=== PATIENT | female | born 1990 | race Caucasian/White ===

== ENCOUNTER 2018-08-25 18:22 | Emergency (ER) | payer OTHER ==
[~2018-08-25] VITALS: Ht 157.5 cm; Wt 59.9 kg
--- OUTSIDE RECORDS SUMMARY | 2018-08-25 18:28 | XMS REPORT ---
Author Author Migration, Doctor Organization [facility] Address Unknown Phone Unavailable Care Team Providers Care Mechanical Adjuster Name Role Phone Migration, Doctor Unavailable Unavailable PROBLEMS Type Condition ICD9-CM Code [id number] Code Onset Dates Condition Status SNOMED Code Problem Unspecified infective otitis externa 380.10 Active 24046937 Problem Amenorrhea N91.2 Active 77389840 Problem Pain in soft tissues of limb 729.5 Active 92419006 Problem Acute pharyngitis 462 Active 496805529 Problem Acute sinusitis, unspecified 461.9 Active 22028242 ALLERGIES No Information ENCOUNTERS Encounter Location Date Diagnosis [address] [address] Aug, [address] [address] July, Encounter for supervision of other normal , first trimester Z34.[address] [address] July, Nausea & vomiting R11.2 and Encounter for supervision of other normal , first trimester Z34.[address] [address] July, Amenorrhea N91.[address] [address] July, Amenorrhea N91.[address] [address] July, [facility] [address] [place] [address] Jun, Nausea & vomiting R11.2 [facility] WALK IN [facility] [address] [place] [address] May, Drug screening, pre-employment Z02.1 [facility] [address] [facility] [id number] [address] Aug, [facility] [address] [facility] [id number] [place] [address] Jun, [facility] [address] [facility] [id number] [place] [address] Jun, IMMUNIZATIONS No Known Immunizations SOCIAL HISTORY Never Assessed REASON FOR VISIT EMR-[facility] [place] PLAN OF CARE VITAL SIGNS Height 62 in 2013-07-09 Weight 141 lbs 2013-07-09 Temperature 98.1 degrees Fahrenheit 2013-07-09 Heart Rate 64 bpm 2013-07-09 Respiratory Rate 16 2013-07-09 Blood pressure systolic 114 mmHg 2013-07-09 Blood pressure diastolic 68 mmHg 2013-07-09 MEDICATIONS Unknown Medications RESULTS No Results PROCEDURES No Known procedures INSTRUCTIONS MEDICATIONS ADMINISTERED No Known Medications MEDICAL (GENERAL) HISTORY Type Description Date Surgical History fistula repair Surgical History hemorrhoidectomy Hospitalization History see surgeries
--- OUTSIDE RECORDS SUMMARY | 2018-08-25 18:28 | XMS REPORT ---
Author Author Migration, Doctor Organization [facility] Address Unknown Phone Unavailable Care Team Providers Care Auto Club Safety Program Coordinator Name Role Phone Migration, Doctor Unavailable Unavailable PROBLEMS Type Condition ICD9-CM Code [id number] Code Onset Dates Condition Status SNOMED Code Problem Unspecified infective otitis externa 380.10 Active 56742859 Problem Amenorrhea N91.2 Active 78624282 Problem Pain in soft tissues of limb 729.5 Active 07349966 Problem Acute pharyngitis 462 Active 972166661 Problem Acute sinusitis, unspecified 461.9 Active [id number] ALLERGIES No Information ENCOUNTERS Encounter Location Date Diagnosis [address] [address] Aug, [address] [address] July, Encounter for supervision of other normal , first trimester Z34.[address] [address] July, Nausea & vomiting R11.2 and Encounter for supervision of other normal , first trimester Z34.[address] [address] July, Amenorrhea N91.[address] [address] July, Amenorrhea N91.[address] [address] July, [facility] [address] [place] [address] Jun, Nausea & vomiting R11.2 [facility] WALK IN [facility] [address] [place] [address] May, Drug screening, pre-employment Z02.1 [facility] [address] [facility]NOTE 3] [id number] [address] Aug, [facility] [address] [facility]NOTE 3] [id number] [place] [address] Jun, [facility] [address] [facility]NOTE 3] [id number] [place] [address] Jun, IMMUNIZATIONS No Known Immunizations SOCIAL HISTORY Never Assessed [place] FOR [place]IT [place] [place] VITAL SIGNS Height 62 in 2013-08-20 Weight 141 lbs 2013-08-20 Temperature 97.3 degrees Fahrenheit 2013-08-20 Heart Rate 76 bpm 2013-08-20 Respiratory Rate 16 2013-08-20 Blood pressure systolic 108 mmHg 2013-08-20 Blood pressure diastolic 64 mmHg 2013-08-20 MEDICATIONS Unknown Medications RESULTS No Results PROCEDURES No Known procedures INSTRUCTIONS MEDICATIONS ADMINISTERED No Known Medications MEDICAL (GENERAL) HISTORY Type Description Date Surgical History fistula repair Surgical History hemorrhoidectomy Hospitalization History see surgeries
--- OUTSIDE RECORDS SUMMARY | 2018-08-25 18:28 | XMS REPORT ---
Author Author Migration, Doctor Organization [facility] Address Unknown Phone Unavailable Care Team Providers Care Steam Room Attendant Name Role Phone Migration, Doctor Unavailable Unavailable PROBLEMS Type Condition ICD9-CM Code [id number] Code Onset Dates Condition Status SNOMED Code Problem Unspecified infective otitis externa 380.10 Active 65774925 Problem Amenorrhea N91.2 Active 87754933 Problem Pain in soft tissues of limb 729.5 Active 28413579 Problem Acute pharyngitis 462 Active 122219044 Problem Acute sinusitis, unspecified 461.9 Active 20539560 ALLERGIES No Information ENCOUNTERS Encounter Location Date Diagnosis [address] [address] Aug, [address] [address] July, Encounter for supervision of other normal , first trimester Z34.[address] [address] July, Nausea & vomiting R11.2 and Encounter for supervision of other normal , first trimester Z34.[address] [address] July, Amenorrhea N91.[address] [address] July, Amenorrhea N91.[address] [address] July, [facility] [address] [place] [address] Jun, Nausea & vomiting R11.2 [facility] WALK IN [facility] [address] [place] [address] May, Drug screening, pre-employment Z02.1 [facility] [address] [facility] [id number], [place] [address] Aug, [facility] [address] [facility] [id number] [place] [address] Jun, [facility] [address] [facility] [id number] [place] [address] Jun, IMMUNIZATIONS No Known Immunizations SOCIAL HISTORY Never Assessed REASON FOR VISIT EMR-[facility] [place] PLAN OF CARE VITAL SIGNS Height 62 in 2013-06-18 Weight 138 lbs 2013-06-18 Temperature 97.3 degrees Fahrenheit 2013-06-18 Heart Rate 60 bpm 2013-06-18 Respiratory Rate 16 2013-06-18 Blood pressure systolic 104 mmHg 2013-06-18 Blood pressure diastolic 60 mmHg 2013-06-18 MEDICATIONS Unknown Medications RESULTS No Results PROCEDURES No Known procedures INSTRUCTIONS MEDICATIONS ADMINISTERED No Known Medications MEDICAL (GENERAL) HISTORY Type Description Date Surgical History fistula repair Surgical History hemorrhoidectomy Hospitalization History see surgeries
--- OUTSIDE RECORDS SUMMARY | 2018-08-25 18:29 | XMS REPORT | Continuity of Care Document ---
Author Organization Unknown Address Unknown Allergies Active Description Code Type Severity Reaction Onset Reported/Identified Relationship to Patient Clinical Status Yes MENINGOCOCCAL GRP B VACCINE ADS 62308 DRUG INGREDI N/A N/A Yes NO NAME AVAILABLE 08881 DRUG N/A N/A Yes CEFAZOLIN 09021 DRUG INGREDI N/A Hives 12/25/2017 12/25/2017 Yes POVIDONE IODINE 86844 DRUG INGREDI N/A Hives 12/25/2017 12/25/2017 Medications Medication Packaging Start Date Stop Date Route Dosage Sig LACTATED RINGERS IV SOLN 12/25/2017 Intravenous 20 CONTINUOUS ONDANSETRON HCL 4 MG/2ML IJ SOLN 12/25/2017 Intravenous PRN GLYCOPYRROLATE 0.2 MG/ML IJ SOLN 12/25/2017 Intravenous PRN LIDOCAINE HCL 1 % IJ SOLN 12/25/2017 Intravenous PRN DEXAMETHASONE SODIUM PHOSPHATE 4 MG/ML IJ SOLN 12/25/2017 Intravenous PRN PROPOFOL 200 MG/20ML IV EMUL 12/25/2017 Intravenous PRN PHENYLEPHRINE HCL-NACL 1-0.9 MG/10ML-% IV SOSY 12/25/2017 Intravenous PRN SURGILUBE EX GEL 12/25/2017 PRN BUPIVACAINE-EPINEPHRINE 0.25% -1:130492 IJ SOLN 12/25/2017 PRN GELATIN ABSORBABLE 100 EX MISC 12/25/2017 PRN LIDOCAINE HCL 2 % GEL URO-JET (SUPPLY) 12/25/2017 PRN ONDANSETRON HCL 4 MG/2ML IJ SOLN 12/25/2017 Intravenous 4 ONCE PRN ONDANSETRON 4 MG PO TBDP 12/25/2017 Oral 4 ONCE PRN ACETAMINOPHEN 325 MG PO TABS 12/25/2017 Oral 650 EVERY 4 HOURS PRN PROCHLORPERAZINE EDISYLATE 5 MG/ML IJ SOLN 12/25/2017 Intravenous 10 EVERY 6 HOURS PRN ONDANSETRON HCL 4 MG/2ML IJ SOLN 12/25/2017 Intravenous 4 EVERY 6 HOURS PRN SODIUM CHLORIDE 0.9 % IV SOLN 12/25/2017 Intravenous 100 CONTINUOUS Problems Date Dx Coded Attending Type Code Diagnosis Diagnosed By 06/29/2012 V 361 Labor 06/29/2012 A 644.03 Threatened premature labor, antepartum(644.03) 06/18/2013 VITO ESPINO APRN 380.10 OTITIS EXTERNA RIGHT 06/18/2013 VITO ESPINO APRN T 729.5 PAIN- ARM 06/18/2013 VITO ESPINO APRN T 380.10 OTITIS EXTERNA RIGHT 06/18/2013 VITO ESPINO APRN T 729.5 PAIN- ARM 06/18/2013 VITO ESPINO APRN T 380.10 OTITIS EXTERNA RIGHT 06/18/2013 VITO ESPINO APRN 729.5 PAIN- ARM 07/09/2013 VITO ESPINO APRN T 461.9 SINUSITIS ACUTE 07/09/2013 VITO ESPINO APRN 461.9 SINUSITIS ACUTE 08/20/2013 VITO ESPINO APRN 462 PHARYNGITIS ACUTE 12/25/2017 CLIVE, JAXSON V K60.3 Anal fistula 12/25/2017 CLIVE, JAXSON P K64.9 Unspecified hemorrhoids 12/25/2017 CLIVE, JAXSON F K60.2 Anal fissure, unspecified 12/25/2017 CLIVE, JAXSON F K64.4 Residual hemorrhoidal skin tags 12/25/2017 CLIVE, JAXSON F Z87.891 Personal history of nicotine dependence 12/25/2017 CLIVE, JAXSON F Z90.49 Acquired absence of other specified parts of digestive tract Procedures Code Description Performed By Performed On [id number] Excision of Hemorrhoidal Plexus, Open Approach 12/25/2017 00769 MO ANUS SURGERY PROCEDURE UNLISTED 12/25/2017 Results Test Result Range HCG, SERUM, QUALITATIVE - 12/25/17 11:21 HCG SERUM(QUAL) Negative mIU/mL Negative HCG, QUANTITATIVE - 07/20/18 09:49 HCG, TOTAL, QN 691 mIU/mL NRG BLOOD TPYE/RH FACTOR - 08/03/18 09:37 ABO GROUP A NRG RH TYPE RH(D) POSITIVE NRG ANTIBODY SCREEN - 08/03/18 09:37 ANTIBODY SCREEN, RBC W/REFL ID, TITER AND AG NO ANTIBODIES DETECTED NRG SYPHILIS (RPR W/ REFLEX CONFIRMATION) - 08/03/18 09:37 RPR (DX) W/REFL TITER AND CONFIRMATORY TESTING NON-REACTIVE NON-REACTIVE HEP B SURFACE ANTIGEN - 08/03/18 09:37 HEPATITIS B SURFACE ANTIGEN NON-REACTIVE NON-REACTIVE SUREPATH PAP RFX HPV mRNA E6/E7 - 08/03/18 13:35 CLINICAL INFORMATION: NRG LMP: NRG PREV. PAP: NRG PREV. 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 Visit Date/Time Discharge Status Pt. Type Provider Facility Loc./Unit Complaint [id number] 08/03/2018 08:45:00 08/03/2018 23:59:59 CLS Outpatient [facility] [id number] 08/03/2018 08:45:00 Document Registration [id number] 07/20/2018 10:00:00 Document Registration [id number] 08/20/2013 09:07:00 08/20/2013 23:59:59 CLS Outpatient VITO ESPINO APRN [id number] 07/09/2013 09:01:00 07/09/2013 23:59:59 CLS Outpatient VITO ESPINO APRN [id number] 06/18/2013 09:25:00 06/18/2013 23:59:59 CLS Outpatient VITO ESPINO APRN [id number] 01/30/2018 10:35:10 01/30/2018 23:59:59 CLS Outpatient CLIVE, JAXSON [facility] CLIVE [id number] 01/02/2018 10:33:59 01/02/2018 23:59:59 CLS Outpatient CLIVE, JAXSON [facility] CLIVE [id number] 12/25/2017 10:47:36 12/25/2017 17:16:00 DIS Outpatient CLIVE, JAXSON [facility] PER [id number] 11/21/2017 09:30:22 11/21/2017 23:59:59 CLS Outpatient CLIVE, JAXSON [facility] CLIVE [id number] 12/25/2017 13:38:49 Document Registration [id number] 12/22/2017 13:42:29 Document Registration [id number] 06/29/2012 04:57:00 Document Registration
[2018-08-25 19:03] LABS: CLARITY,URINE CLOUDY; COLOR,URINE YELLOW; GLUCOSE, URINE (UA) NEGATIVE (NEGATIVE); KETONES,URINE 1+ (NEGATIVE); NITRITE,URINE NEGATIVE (NEGATIVE); PROTEIN,URINE TRACE (NEGATIVE)
[2018-08-25 19:05] LABS: BILIRUBIN,URINE 1+ (NEGATIVE); LEUKOCYTE ESTERASE ,URINE NEGATIVE (NEGATIVE)
[2018-08-25 19:06] LABS: BACTERIA,URINE FEW /HPF; RBC,URINE 50-100 /HPF; SQUAMOUS EPITHELIAL CELL,UR 0-2 /HPF; WBC,URINE 0-2 /HPF
[2018-08-25 19:12] LABS: BASOPHILS % (AUTO) 0 % (0-10); EOSINOPHILS % (AUTO) 1 % (0-10); HEMATOCRIT 37 % (35-52); HEMOGLOBIN 12.8 G/DL (11.5-16.0); LYMPHOCYTES # (AUTO) 2.2 X 10^3 (1.0-4.0); LYMPHOCYTES % (AUTO) 31 % (12-44); MEAN CORPUSCULAR HEMOGLOBIN 31 PG (25-34); MEAN CORPUSCULAR HGB CONC 35 G/DL (32-36); MEAN CORPUSCULAR VOLUME 89 FL (80-99); MONOCYTES % (AUTO) 8 % (0-12); NEUTROPHILS # (AUTO) 4.3 X 10^3 (1.8-7.8); NEUTROPHILS % (AUTO) 60 % (42-75); PLATELET COUNT 307 10^3/uL (130-400); RED CELL DISTRIBUTION WIDTH 12.1 % (10.0-14.5); WHITE BLOOD COUNT 7.1 10^3/uL (4.3-11.0)
[2018-08-25 19:13] LABS: EOSINOPHILS # (AUTO) 0.1 10^3/uL (0.0-0.3); MONOCYTES # (AUTO) 0.5 X 10^3 (0.0-1.0)
[2018-08-25] MEDS ORDERED: ACETAMINOPHEN 500 MG TAB (TYLENOL) PO STA (21:24)
--- NOTE | 2018-08-25 21:25 | ED GU-Female ---
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 Patient states she began to have steady vaginal bleeding 30 minutes prior to arrival to ED with abdominal cramping. Nursing Sepsis Screen: No Definite Risk Source: patient History of Present Illness Date Seen by Provider: Aug 25, 2018 Time Seen by Provider: 21:04 Initial Comments 27 yo F presenting from [facility] with complaint of vaginal spotting. She states she had a light period or spotting in April this year. She saw Dr. Hutchinson already about this and believes she should be around 9 weeks now. She is having cramping pain now as well. She relates having some blood when she goes to the bathroom and sees pink when she wipes. She denies fever or chills. Allergies and Home Medications Allergies Coded Allergies: cefazolin (Verified Allergy, Unknown, 08/25/18) Home Medications Acetaminophen 500 Mg Tablet, 1,000 MG PO Q6H PRN for PAIN-MILD TO MODERATE Prescribed by: ASTRID SANTOS on 08/25/18 2140 Patient Home Medication List Home Medication List Reviewed: Yes Review of Systems Review of Systems Constitutional: no symptoms reported EENTM: no symptoms reported Respiratory: no symptoms reported Cardiovascular: no symptoms reported Gastrointestinal: nausea, vomiting Genitourinary: see HPI, dysuria, flank pain : Yes Musculoskeletal: no symptoms reported Skin: no symptoms reported Psychiatric/Neurological: Anxiety Past Jvxsmdi-Xtcgeg-Rlxsqg Hx Past Med/Social Hx: Reviewed Nursing Past Med/Soc Hx Patient Social History Alcohol Use: Denies Use Recreational Drug Use: No Smoking Status: Current Everyday Smoker Type Used: Electronic/Vapor 2nd Hand Smoke Exposure: No Recent Foreign Travel: No Contact w/Someone Who Travel: No Recent Infectious Disease Expo: No Recent Hopitalizations: No Physical Abuse: No Sexual Abuse: No Mistreated: No Fear: No Seasonal Allergies Seasonal Allergies: No Past Medical History Surgeries: Yes Section, Gallbladder Respiratory: No Cardiac: No Neurological: No Genitourinary: No Gastrointestinal: No Musculoskeletal: No Endocrine: No HEENT: No Cancer: No Psychosocial: No Integumentary: No Physical Exam Vital Signs Vital Signs - First Documented 08/25/18 18:29 Temp 98.4 Pulse 78 Resp 18 B/P (MAP) 94/53 (67) Pulse Ox 100 O2 Delivery Room Air Capillary Refill : Less Than 3 Seconds Height, Weight, BMI Height: 5'2.00" Weight: 132lbs. oz. 59.810544cb; BMI Method:Stated General Appearance: WD/WN, no apparent distress HEENT: PERRL/EOMI, pharynx normal Neck: supple Cardiovascular: normal peripheral pulses, regular rate, rhythm Respiratory: chest non-tender, lungs clear Gastrointestinal: normal bowel sounds, soft, no pulsatile mass, tenderness (suprapubic) Genital/Rectal: normal genital exam, normal vaginal exam Pelvic: normal external exam, no cerv. motion tender Extremities: normal range of motion, non-tender Neurologic/Psychiatric: alert, oriented x 3 Skin: normal color, warm/dry Progress/Results/Core Measures Suspected Sepsis Recent Fever Within 48 Hours: No Infection Criteria Present: None New/Unexplained Altered Menta: No Sepsis Screen: No Definite Risk SIRS Temperature:98.4 Pulse: 78 Respiratory Rate: 18 Laboratory Tests 08/25/18 19:04: White Blood Count 7.1 Blood Pressure 94 /53 Mean: 67 Laboratory Tests 08/25/18 19:04: Platelet Count 307 Results/Orders Lab Results Laboratory Tests Test 08/25/18 18:40 08/25/18 19:04 Range/Units Urine Color YELLOW Urine Clarity CLOUDY Urine pH 6.0 5-9 Urine Specific [place] 1.025 H 1.016-1.022 Urine Protein TRACE NEGATIVE Urine Glucose (UA) NEGATIVE NEGATIVE Urine Ketones 1+ H NEGATIVE Urine Nitrite NEGATIVE NEGATIVE Urine Bilirubin 1+ H NEGATIVE Urine Urobilinogen 1.0 NORMAL MG/DL Urine Leukocyte Esterase NEGATIVE NEGATIVE Urine RBC (Auto) 3+ H NEGATIVE Urine RBC 50-100 H /HPF Urine WBC 0-2 /HPF Urine Squamous Epithelial Cells 0-2 /HPF Urine Crystals NONE /LPF Urine Bacteria FEW H /HPF Urine Casts NONE /LPF Urine Mucus NONE /LPF Urine Culture Indicated NO White Blood Count 7.1 4.3-11.0 10^3/uL Red Blood Count 4.12 L 4.35-5.85 10^6/uL Hemoglobin 12.8 11.5-16.0 G/DL Hematocrit 37 35-52 % Mean Corpuscular Volume 89 80-99 FL Mean Corpuscular Hemoglobin 31 25-34 PG Mean Corpuscular Hemoglobin Concent 35 32-36 G/DL Red Cell Distribution Width 12.1 10.0-14.5 % Platelet Count 307 130-400 10^3/uL Mean Platelet Volume 11.0 H 7.4-10.4 FL Neutrophils (%) (Auto) 60 42-75 % Lymphocytes (%) (Auto) 31 12-44 % Monocytes (%) (Auto) 8 0-12 % Eosinophils (%) (Auto) 1 0-10 % Basophils (%) (Auto) 0 0-10 % Neutrophils # (Auto) 4.3 1.8-7.8 X 10^3 Lymphocytes # (Auto) 2.2 1.0-4.0 X 10^3 Monocytes # (Auto) 0.5 0.0-1.0 X 10^3 Eosinophils # (Auto) 0.1 0.0-0.3 10^3/uL Basophils # (Auto) 0.0 0.0-0.1 10^3/uL Human Chorionic Gonadotropin, Quant 27603 H <5 MIU/ML My Orders Orders - ASTRID SANTOS MD Cbc With Automated Diff (08/25/18 18:37) Hcg,Quantitative (08/25/18 18:37) Ua Culture If Indicated (08/25/18 18:37) Acetaminophen Tablet (Tylenol Tablet) (08/25/18 21:24) Vital Signs/I&O Capillary Refill : Less Than 3 Seconds Blood Pressure Mean: 67 Progress Note #1: Progress Note check labs to see what CBC and Quantitative Beta HCG levels are. Will check UA as well. Will perform speculum exam as well. Progress Note #2: Progress Note Labs show normal CBC and Beta HCG is over 81K. Speculum exam shows no vaginal bleeding. Counseled on follow up and return precautions. advised to recheck labs with Dr. Hutchinson Monday or Monday in clinic Departure Impression Primary Impression: Vaginal bleeding in patient at less than 20 weeks gestation Additional Impression: Threatened miscarriage in early Disposition: 01 HOME, SELF-CARE Condition: Stable Departure-Patient Inst. Decision time for Depature: 21:39 Referrals: JENIFFER HUTCHINSON DO (PCP/Family) Primary Care Physician Patient Instructions: Threatened Miscarriage (DC), Bleeding With (DC) Add. Discharge Instructions: Med[facility] clear to [facility] to [facility]. Recheck in clinic with Dr. Hutchinson on Monday or Monday for a repeat hormone level to compare to your 81,918 level from today. He may also get an ultrasound too. You may take Acetaminophen 1,000 mg every 6 hours as needed for pain. Seek medical care if you have bleeding so heavy that you are saturating more than a pad an hour for more than an hour, or having fever over 101 F. All discharge instructions reviewed with patient and/or family. Voiced understanding. Scripts Acetaminophen (Acetaminophen) 500 Mg Tablet 1000 MG PO Q6H PRN for PAIN-MILD TO MODERATE for 7 Days, #30 TAB 0 Refills Prov: ASTRID SANTOS MD 08/25/18 ASTRID SANTOS MD Aug 25, 2018 21:25
[2018-08-25] MEDS ORDERED: ACET-93 PO (21:45)
[2018-08-25 23:04] VITALS: BP 102/64
== END 2018-08-25 21:57 | disposition home or self-care (01) ==
LOC: EDUNIT# 18:22 → ER FS 18:24
DX: O20.0 Threatened abortion (principal); O99.331 Smoking (tobacco) complicating pregnancy, first trimester; Z88.1 Allergy status to other antibiotic agents; Z3A.10 10 weeks gestation of pregnancy; Z98.890 Other specified postprocedural states
CPT/HCPCS: 36415; 81000; 84702; 85025; 99284

== ENCOUNTER 2018-09-20 20:32 | Emergency (ER) | payer MEDICAID, OTHER ==
[~2018-09-20] VITALS: Ht 157.5 cm; Wt 57.6 kg
[~2018-09-20 20:32] MED LIST: ACET-93 PO
--- OUTSIDE RECORDS SUMMARY | 2018-09-20 20:44 | XMS REPORT | Continuity of Care Document ---
Author Organization Unknown Address Unknown Allergies Active Description Code Type Severity Reaction Onset Reported/Identified Relationship to Patient Clinical Status Yes MENINGOCOCCAL GRP B VACCINE ADS 07745 DRUG INGREDI N/A N/A Yes NO NAME AVAILABLE 35593 DRUG N/A N/A Yes CEFAZOLIN 60821 DRUG INGREDI N/A Hives 12/25/2017 12/25/2017 Yes POVIDONE IODINE 64764 DRUG INGREDI N/A Hives 12/25/2017 12/25/2017 Medications [...] SURGILUBE EX GEL 12/25/2017 PRN BUPIVACAINE-EPINEPHRINE 0.25% -1:756827 IJ SOLN 12/25/2017 PRN GELATIN ABSORBABLE 100 [...] Procedures Code Description Performed By Performed On [id number] Excision of Hemorrhoidal Plexus, Open Approach 12/25/2017 52265 [place] ANUS SURGERY PROCEDURE UNLISTED 12/25/2017 Results Test [...] NRG STATEMENT OF ADEQUACY: NRG INTERPRETATION/RESULT: NRG BOOM STICK 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 Visit Date/Time Discharge Status Pt. Type Provider Facility Loc./Unit Complaint [id number] 08/28/2018 10:00:00 08/28/2018 23:59:59 CLS Outpatient [facility] [id number] 08/03/2018 08:45:00 Document Registration [id number] 07/20/2018 10:00:00 Document Registration [id number] 08/20/2013 09:07:00 08/20/2013 23:59:59 CLS Outpatient VITO ESPINO APRN [id number] 07/09/2013 09:01:00 07/09/2013 23:59:59 CLS Outpatient VITO ESPINO APRN [id number] 06/18/2013 09:25:00 06/18/2013 23:59:59 CLS Outpatient VITO ESPINO APRN [id number] 01/30/2018 10:35:10 01/30/2018 23:59:59 CLS Outpatient CLIVE, JAXSON [facility] CLIVE [id number] 01/02/2018 10:33:59 01/02/2018 23:59:59 CLS Outpatient CLIVE, JAXSON [facility] CL[facility] [id number] 12/25/2017 10:47:36 12/25/2017 17:16:00 DIS Outpatient CLIVE, JAXSON [facility] PER [id number] 11/21/2017 09:30:22 11/21/2017 23:59:59 CLS Outpatient CLIVE, JAXSON [facility] [id number] 12/25/2017 13:38:49 Document Registration [id number] 12/22/2017 13:42:29 Document Registration [id number] 06/29/2012 04:57:00 Document Registration
--- NOTE | 2018-09-20 20:54 | NUR ---
ATTEMPTED TO FIND THE [facility] AND WAS UNSUCCESSFUL. PT. REPORTED SHE IS 14 WEEKS . SHE REPORTED SHE IS HAVING CONTRACTIONS AND SHE HAS NO BLEEDING AT THIS TIME.
[2018-09-20 21:15] LABS: BACTERIA,URINE MODERATE /HPF; BILIRUBIN,URINE NEGATIVE (NEGATIVE); CLARITY,URINE CLEAR; COLOR,URINE YELLOW; GLUCOSE, URINE (UA) NEGATIVE (NEGATIVE); KETONES,URINE NEGATIVE (NEGATIVE); LEUKOCYTE ESTERASE ,URINE NEGATIVE (NEGATIVE); NITRITE,URINE NEGATIVE (NEGATIVE); PH,URINE 6.5 (5-9); PROTEIN,URINE NEGATIVE (NEGATIVE); UROBILINOGEN,URINE 0.2 MG/DL (NORMAL); WBC,URINE 0-2 /HPF
--- NOTE | 2018-09-20 21:26 | ED GU-Female ---
General Chief Complaint: Abdominal/GI Problems Stated Complaint: CONTRACTIONS Nursing Triage Note: PT. REPORTED SHE IS 14 WEEKS AND HAVING CONTRACTIONS. PT. REPORTED SHE HAS HAD CONTRACTIONS ALL DAY. SHE HAS NO BLEEDING. THIS RN WAS UNABLE TO NUT AND BOLT ASSEMBLER FHR BY DOPPLER AT THIS TIME. Nursing Sepsis Screen: No Definite Risk Source: patient, police (staff from the custodial) History of Present Illness Date Seen by Provider: Sep 20, 2018 Time Seen by Provider: 21:01 Initial Comments 28-year-old female presenting with complaints of having tightening up sensation and pain in her abdomen. She is reporting that she is approximately 14 weeks . She has not been having any vaginal bleeding but was concerned for contractions. She denies any pain with urination. She has had no fever or chills. She states that she has some mild discharge that has been going on during her . She reports that the pain in her abdomen pelvis is similar to when she has labor and contractions with her previous pregnancies. She hasn't tried taking Tylenol at the custodial as well as trying to rest and sleep. She states that the pain is continuing. That her abdomen with contract and tightness improved about 30 seconds at a time. Continues to happen throughout the day. She apparently told staff about it and they brought her into the emergency department. Allergies and Home Medications Allergies Coded Allergies: cefazolin (Verified Allergy, Unknown, 08/25/18) Home Medications Acetaminophen 500 Mg Tablet, 1,000 MG PO Q6H PRN for PAIN-MILD TO MODERATE Prescribed by: ASTRID SANTOS on 08/25/18 0206 Patient Home Medication List Home Medication List Reviewed: Yes Review of Systems Review of Systems Constitutional: No chills, No fever EENTM: no symptoms reported Respiratory: no symptoms reported Cardiovascular: no symptoms reported Gastrointestinal: see HPI Genitourinary: see HPI Musculoskeletal: no symptoms reported Skin: no symptoms reported Psychiatric/Neurological: No Symptoms Reported Past Xfduvte-Mvxsvp-Kzhyjc Hx Past Med/Social Hx: Reviewed Nursing Past Med/Soc Hx Patient Social History Type Used: Electronic/Vapor 2nd Hand Smoke Exposure: No Recent Foreign Travel: No Contact w/Someone Who Travel: No Recent Infectious Disease Expo: No Recent Hopitalizations: No Physical Abuse: No Sexual Abuse: No Mistreated: No Fear: No Seasonal Allergies Seasonal Allergies: No Past Medical History Surgeries: Yes Section, Gallbladder Respiratory: No Cardiac: No Neurological: No : Yes Genitourinary: No Gastrointestinal: No Musculoskeletal: No Endocrine: No HEENT: No Cancer: No Psychosocial: No Integumentary: No Physical Exam Vital Signs Vital Signs - First Documented 09/20/18 09/20/18 20:40 21:35 Temp 99.0 Pulse 93 Resp 20 B/P (MAP) 122/53 (76) Pulse Ox 99 O2 Delivery Room Air Capillary Refill : Less Than 3 Seconds Height, Weight, BMI Height: 5'2.00" Weight: 127lbs. oz. 57.724199km; BMI Method:Stated General Appearance: WD/WN, no apparent distress HEENT: normal ENT inspection, pharynx normal Neck: non-tender, full range of motion, supple, normal inspection Cardiovascular: normal peripheral pulses, regular rate, rhythm Respiratory: chest non-tender, lungs clear, normal breath sounds Gastrointestinal: normal bowel sounds, non tender, soft, no pulsatile mass Genital/Rectal: other ( heart tones by Doppler are in the 150s) Extremities: normal range of motion, non-tender, normal inspection Neurologic/Psychiatric: alert, normal mood/affect, oriented x 3 Skin: normal color, warm/dry Progress/Results/Core Measures Suspected Sepsis Recent Fever Within 48 Hours: No Infection Criteria Present: None New/Unexplained Altered Menta: No Sepsis Screen: No Definite Risk SIRS Temperature:99.0 Pulse: 93 Respiratory Rate: 20 Blood Pressure 122 /53 Mean: 76 Results/Orders Lab Results Laboratory Tests Test 09/20/18 20:40 Range/Units Urine Color YELLOW Urine Clarity CLEAR Urine pH 6.5 5-9 Urine Specific [place] <=1.005 1.016-1.022 Urine Protein NEGATIVE NEGATIVE Urine Glucose (UA) NEGATIVE NEGATIVE Urine Ketones NEGATIVE NEGATIVE Urine Nitrite NEGATIVE NEGATIVE Urine Bilirubin NEGATIVE NEGATIVE Urine Urobilinogen 0.2 NORMAL MG/DL Urine Leukocyte Esterase NEGATIVE NEGATIVE Urine RBC (Auto) NEGATIVE NEGATIVE Urine RBC NONE /HPF Urine WBC 0-2 /HPF Urine Squamous Epithelial Cells 2-5 /HPF Urine Crystals NONE /LPF Urine Bacteria MODERATE H /HPF Urine Casts NONE /LPF Urine Mucus NEGATIVE /LPF Urine Culture Indicated YES My Orders Orders - ASTRID SANTOS MD Ua Culture If Indicated (09/20/18 20:58) Urine Culture (09/20/18 20:40) Acetaminophen/Codeine Tablet (Tylenol W/ (09/20/18 21:29) Vital Signs/I&O Capillary Refill : Less Than 3 Seconds Blood Pressure Mean: 76 Progress Note #1: Progress Note Urinalysis was clear that that showed some bacteria present. A culture will be obtained. The exam was normal and she had heart tones in the 150s on exam found by Doppler. Will call Dr. Hutchinson and check in with him about recommendations for evaluation for her complaints Progress Note #2: Progress Note Discussed with Dr. Hutchinson and he recommended giving a single extra dose of pain medicine here and having her rest and continue fluids at the custodial. Follow up with him in the clinic this next week. Return for worsening symptoms or new problems before that. Departure Impression Primary Impression: Abdominal pain during in first trimester Disposition: 01 HOME, SELF-CARE Condition: Stable Departure-Patient Inst. Decision time for Depature: 21:31 Referrals: NO,LOCAL PHYSICIAN (PCP/Family) Primary Care Physician Patient Instructions: Stomach Pain in Early Add. Discharge Instructions: Check back with Dr. Hutchinson in clinic this next week. Stay well hydrated and try to get plenty of rest. All discharge instructions reviewed with patient and/or family. Voiced understanding. ASTRID SANTOS MD Sep 20, 2018 21:26
[2018-09-20] MEDS ORDERED: APAP 300 MG/CODEINE 30 MG (TYLENOL #3) TAB PO STA (21:29)
[2018-09-20 21:35] VITALS: BP 122/53
== END 2018-09-20 21:36 | disposition home or self-care (01) ==
LOC: EDUNIT# 20:32 → ER FS 20:35
DX: O26.892 Other specified pregnancy related conditions, second trimester (principal); R10.2 Pelvic and perineal pain; Z88.1 Allergy status to other antibiotic agents; Z3A.14 14 weeks gestation of pregnancy
CPT/HCPCS: 81000; 87088

== ENCOUNTER 2018-10-01 22:21 | Emergency (ER) | payer OTHER ==
[~2018-10-01] VITALS: Ht 152.4 cm; Wt 59.0 kg
--- OUTSIDE RECORDS SUMMARY | 2018-10-01 22:27 | XMS REPORT | Continuity of Care Document ---
Author Organization Unknown Address Unknown Allergies Active Description Code Type Severity Reaction Onset Reported/Identified Relationship to Patient Clinical Status Yes MENINGOCOCCAL GRP B VACCINE ADS 24827 DRUG INGREDI N/A N/A Yes NO NAME AVAILABLE 90549 DRUG N/A N/A Yes CEFAZOLIN 06576 DRUG INGREDI N/A Hives 12/25/2017 12/25/2017 Yes POVIDONE IODINE 44672 DRUG INGREDI N/A Hives 12/25/2017 12/25/2017 Medications [...] SURGILUBE EX GEL 12/25/2017 PRN BUPIVACAINE-EPINEPHRINE 0.25% -1:[id number] IJ SOLN 12/25/2017 PRN GELATIN ABSORBABLE 100 [...] Procedures Code Description Performed By Performed On [id number] Excision of Hemorrhoidal Plexus, Open Approach 12/25/2017 07218 [place] ANUS SURGERY PROCEDURE UNLISTED 12/25/2017 Results Test [...] NRG STATEMENT OF ADEQUACY: NRG INTERPRETATION/RESULT: NRG [employer]: NRG COMMENT NRG Encounters ACCT No. Visit Date/Time Discharge Status Pt. Type Provider Facility Loc./Unit Complaint [id number] 08/28/2018 10:00:00 08/28/2018 23:59:59 CLS Outpatient [facility] [id number] 08/03/2018 08:45:00 Document Registration [id number] 07/20/2018 10:00:00 Document Registration [id number] 08/20/2013 09:07:00 08/20/2013 23:59:59 CLS Outpatient VITO ESPINO APRN [id number] 07/09/2013 09:01:00 07/09/2013 23:59:59 CLS Outpatient VITO ESPINO APRN [id number] 06/18/2013 09:25:00 06/18/2013 23:59:59 CLS Outpatient VITO ESPINO APRN [id number] 01/30/2018 10:35:10 01/30/2018 23:59:59 CLS Outpatient CLIVE, JAXSON [facility] CLIVE [id number] 01/02/2018 10:33:59 01/02/2018 23:59:59 CLS Outpatient CLIVE, JAXSON [facility] CLIVE [id number] 12/25/2017 10:47:36 12/25/2017 17:16:00 DIS Outpatient CLIVE, JAXSON [facility] PER [id number] 11/21/2017 09:30:22 11/21/2017 23:59:59 CLS Outpatient CLIVE, JAXSON [facility] CLIVE [id number] 12/25/2017 13:38:49 Document Registration [id number] 12/22/2017 13:42:29 Document Registration [id number] 06/29/2012 04:57:00 Document Registration
--- NOTE | 2018-10-01 23:00 | ED GU-Female ---
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 Also place her blood pressure was a bit low in the low 100s over 40s [facility]. Denies breathing problems, nausea, vomiting or diarrhea. Denies dysuria. Does have constipation but did have a bowel movement today. She is approximately 16 weeks currently. Seen here 10 days ago for similar and thought to possibly have urinary tract infection but that culture was negative. She follows with Dr. Hutchinson. Patient is A+ blood type by previous [facility] records. Timing/Duration: this morning, intermittent Severity/Quality: moderate, cramping Location: suprapubic Radiation: none Activities at Onset: none Sexual [place] History: not active Associated Symptoms: abdominal pain; No nausea/vomiting, No urinary frequency Allergies and Home Medications Allergies Coded Allergies: cefazolin (Verified Allergy, Unknown, 08/25/18) Home Medications Acetaminophen 500 Mg Tablet, 1,000 MG PO Q6H PRN for PAIN-MILD TO MODERATE Prescribed by: ASTRID SANTOS on 08/25/18 9311 Patient Home Medication List Home Medication List Reviewed: Yes Review of Systems Review of Systems Constitutional: see HPI; No chills, No fever Respiratory: no symptoms reported Cardiovascular: no symptoms reported Gastrointestinal: see HPI : Yes Musculoskeletal: no symptoms reported Past Grvcpqv-Mwkgcy-Ahtifm Hx Past Med/Social Hx: Reviewed Nursing Past Med/Soc Hx Patient Social History Alcohol Use: Denies Use Recreational Drug Use: No Type Used: Electronic/Vapor 2nd Hand Smoke Exposure: No Recent Foreign Travel: No Contact w/Someone Who Travel: No Recent Hopitalizations: No Physical Abuse: No Sexual Abuse: No Mistreated: No Seasonal Allergies Seasonal Allergies: No Past Medical History Surgeries: Yes Section, Gallbladder Respiratory: No Cardiac: No Neurological: No : Yes Hx : 4 Hx Para: 3 Hx Total # of Abortions (Sp): 0 Genitourinary: No Gastrointestinal: No Musculoskeletal: No Endocrine: No HEENT: No Cancer: No Psychosocial: No Integumentary: No Family Medical History Reviewed Nursing Family Hx Physical Exam Vital Signs Vital Signs - First Documented 10/01/18 22:32 Temp 98.4 Pulse 80 Resp 16 B/P (MAP) 109/63 (78) Pulse Ox 100 O2 Delivery Room Air Capillary Refill : Height, Weight, BMI Height: 5'2.00" Weight: 127lbs. oz. 57.441784bf; BMI Method:Stated General Appearance: WD/WN, no apparent distress Cardiovascular: regular rate, rhythm, no murmur Respiratory: lungs clear, normal breath sounds Gastrointestinal: non tender, soft Pelvic: normal external exam, no cerv. motion tender, discharge (small amounts of yellow/mucus discharge with no bleeding noted), other (tender over the round ligaments bilateral) Neurologic/Psychiatric: alert, oriented x 3 Skin: normal color, warm/dry Progress/Results/Core Measures Suspected Sepsis SIRS Temperature: Pulse: Respiratory Rate: Blood Pressure / Mean: Results/Orders Lab Results Laboratory Tests Test 10/01/18 22:35 Range/Units Urine Color YELLOW Urine Clarity SLT CLOUDY Urine pH 8.5 5-9 Urine Specific [place] 1.015 L 1.016-1.022 Urine Protein NEGATIVE NEGATIVE Urine Glucose (UA) NEGATIVE NEGATIVE Urine Ketones NEGATIVE NEGATIVE Urine Nitrite NEGATIVE NEGATIVE Urine Bilirubin NEGATIVE NEGATIVE Urine Urobilinogen 1.0 NORMAL MG/DL Urine Leukocyte Esterase NEGATIVE NEGATIVE Urine RBC (Auto) NEGATIVE NEGATIVE Urine RBC NONE /HPF Urine WBC RARE /HPF Urine Squamous Epithelial Cells 0-2 /HPF Urine Crystals PRESENT H /LPF Urine Amorphous Sediment FEW [place] PHOSPHATE H /LPF Urine Bacteria FEW H /HPF Urine Casts NONE /LPF Urine Mucus SMALL H /LPF Urine Culture Indicated NO Micro Results Microbiology 10/01/18 Wet Prep - Final, Complete My Orders Orders - BHAVANA BLOOM MD Ua Culture If Indicated (10/01/18 22:45) Wet Prep (10/01/18 22:45) Metronidazole Tablet (Flagyl Tablet) (10/01/18 23:09) Vital Signs/I&O 10/01/18 22:32 Temp 98.4 Pulse 80 Resp 16 B/P (MAP) 109/63 (78) Pulse Ox 100 O2 Delivery Room Air Capillary Refill : Progress Note : Progress Note Seen and evaluated. [facility] patient's blood type is A+. UA and wet prep ordered. Pelvic exam completed. Doppler shows heart tones at 150. Pending UA and wet prep. 2308: Patient does have clue cells noted on wet prep. I did discuss the case with Dr. Hutchinson and he is recommending Flagyl twice a day for 7 days. We will initiate that now. He would like to see her in follow-up in one week. Discharged home with return precautions. Patient verbalize understanding instructions and agreement with plan. UA is negative. Departure Impression Primary Impression: Bacterial vaginosis in Disposition: 21 DIS/XFER [address]/LAW ENFORCE Condition: Improved Departure-Patient Inst. Decision time for Depature: 23:13 Referrals: NO,LOCAL PHYSICIAN (PCP/Family) Primary Care Physician Patient Instructions: Bacterial Vaginosis (DC) Add. Discharge Instructions: All discharge instructions reviewed with patient and/or family. Voiced understanding. You may continue the Tylenol 1000 mg every 6 hours as needed for pain. Take the medication as directed (Flagyl/metronidazole 1 tablet twice daily for 7 days). You need to follow-up with Dr. Hutchinson in one week for recheck and further evaluation. Return for worse pain, fever, vomiting, vaginal bleeding or other concerns as needed. Scripts Metronidazole (Metronidazole) 500 Mg Tablet 500 MG PO BID, #14 TAB 0 Refills Prov: BHAVANA BLOOM MD 10/01/18 Copy Copies To 1: JENIFFER HUTCHINSON TIMOTHY D MD Oct 01, 2018 23:00
[2018-10-01 23:05] LABS: BACTERIA,URINE FEW /HPF; BILIRUBIN,URINE NEGATIVE (NEGATIVE); CLARITY,URINE SLT CLOUDY; COLOR,URINE YELLOW; GLUCOSE, URINE (UA) NEGATIVE (NEGATIVE); KETONES,URINE NEGATIVE (NEGATIVE); LEUKOCYTE ESTERASE ,URINE NEGATIVE (NEGATIVE); NITRITE,URINE NEGATIVE (NEGATIVE); PH,URINE 8.5 (5-9); PROTEIN,URINE NEGATIVE (NEGATIVE); WBC,URINE RARE /HPF
[2018-10-01 23:06] LABS: AMORPHOUS SEDIMENT,UR FEW AMOR PHOSPHATE /LPF; SQUAMOUS EPITHELIAL CELL,UR 0-2 /HPF
[2018-10-01] MEDS ORDERED: metroNIDAZOLE 500 MG (FLAGYL) TAB PO STA (23:09)
[2018-10-01] MEDS ORDERED: METR-145 PO (23:16)
[2018-10-01 23:22] VITALS: BP 102/56
== END 2018-10-01 23:28 ==
LOC: EDUNIT# 22:21 → ER FS 22:24
DX: O23.592 Infection of other part of genital tract in pregnancy, second trimester (principal); B96.89 Other specified bacterial agents as the cause of diseases classified elsewhere; Z88.1 Allergy status to other antibiotic agents; Z98.890 Other specified postprocedural states; Z3A.16 16 weeks gestation of pregnancy
CPT/HCPCS: 81000; 87210

== ENCOUNTER 2018-10-08 20:03 | Emergency (ER) | payer OTHER ==
[~2018-10-08] VITALS: Ht 157.5 cm; Wt 59.0 kg
[~2018-10-08 20:03] MED LIST changes: +METR-145 PO
--- NOTE | 2018-10-08 20:17 | ED GU-Female ---
General Stated Complaint: CRAMPING, CONTRACTIONS Source: patient, RN notes reviewed, old records Exam Limitations: no limitations History of Present Illness Date Seen by Provider: Oct 08, 2018 Time Seen by Provider: 20:17 Initial Comments Patient brought to the ED from local alf c/ c/o cramping and spotting as well as N/V all day. Reports being 4 months . Has been seen by Dr. Hutchinson. States she had early cramping c/ her prior pregnancies but never this bad. Timing/Duration: this morning, constant, getting worse Severity/Quality: severe (9/10) Location: suprapubic Radiation: none Activities at Onset: rest Prior Genitourinary Problems: similar symptoms (but to lesser extent) Sexual [place] History: greater than 2 months ago Modifying Factors: Improves With Other (none) Associated Symptoms: denies symptoms (x/ as noted.), abdominal pain (suprapubic), nausea/vomiting Allergies and Home Medications Allergies Coded Allergies: cefazolin (Verified Allergy, Unknown, 08/25/18) Home Medications Acetaminophen 500 Mg Tablet, 1,000 MG PO Q6H PRN for PAIN-MILD TO MODERATE Prescribed by: ASTRID SANTOS on 08/25/185 Metronidazole 500 Mg Tablet, 500 MG PO BID Prescribed by: BHAVANA BLOOM on 10/01/18 2316 Patient Home Medication List Home Medication List Reviewed: Yes Review of Systems Review of Systems Constitutional: see HPI Gastrointestinal: see HPI, abdominal pain (suprapubic), nausea, vomiting Genitourinary: see HPI, other (reports some spotting) : Yes All Other Systemes Reviewed Negative Unless Noted: Yes (Negative excepted noted.) Past Qgpuujz-Werasd-Xsoeyq Hx Patient Social History Type Used: Electronic/Vapor 2nd Hand Smoke Exposure: No Recent Foreign Travel: No Contact w/Someone Who Travel: No Recent Hopitalizations: No Seasonal Allergies Seasonal Allergies: No Past Medical History Surgeries: Yes Section, Gallbladder Respiratory: No Cardiac: No Neurological: No Genitourinary: No Gastrointestinal: No Musculoskeletal: No Endocrine: No HEENT: No Cancer: No Psychosocial: No Integumentary: No Physical Exam Vital Signs Vital Signs - First Documented 10/08/18 20:05 Temp 98.7 Pulse 96 Resp 18 B/P (MAP) 112/74 (87) Pulse Ox 99 O2 Delivery Room Air Capillary Refill : Height, Weight, BMI Height: 5'0" Weight: 130lbs. oz. 58.641222iw; BMI Method:Estimated General Appearance: WD/WN, no apparent distress Cardiovascular: regular rate, rhythm Respiratory: no respiratory distress Gastrointestinal: No guarding, No rebound; tenderness (mild; suprapubic) Pelvic: normal external exam; No discharge, No vaginal bleeding (none noted); other (cervix closed; (+) mucous plug) Neurologic/Psychiatric: no motor/sensory deficits, alert, normal mood/affect, oriented x 3 Skin: warm/dry; No rash Progress/Results/Core Measures Suspected Sepsis SIRS Temperature: Pulse: Respiratory Rate: Laboratory Tests 10/08/18 21:03: White Blood Count 7.1 Blood Pressure / Mean: Laboratory Tests 10/08/18 21:03: Creatinine 0.50L, Platelet Count 243, Total Bilirubin 0.2 Results/Orders Lab Results Laboratory Tests Test 10/08/18 20:25 10/08/18 21:03 Range/Units Urine Color YELLOW Urine Clarity CLEAR Urine pH 7.0 5-9 Urine Specific [place] 1.020 1.016-1.022 Urine Protein NEGATIVE NEGATIVE Urine Glucose (UA) NEGATIVE NEGATIVE Urine Ketones NEGATIVE NEGATIVE Urine Nitrite NEGATIVE NEGATIVE Urine Bilirubin NEGATIVE NEGATIVE Urine Urobilinogen 0.2 NORMAL MG/DL Urine Leukocyte Esterase NEGATIVE NEGATIVE Urine RBC (Auto) NEGATIVE NEGATIVE Urine RBC NONE /HPF Urine WBC NONE /HPF Urine Squamous Epithelial Cells 5-10 /HPF Urine Crystals NONE /LPF Urine Bacteria MODERATE H /HPF Urine Casts NONE /LPF Urine Mucus NEGATIVE /LPF Urine Culture Indicated NO White Blood Count 7.1 4.3-11.0 10^3/uL Red Blood Count 3.46 L 4.35-5.85 10^6/uL Hemoglobin 10.9 L 11.5-16.0 G/DL Hematocrit 31 L 35-52 % Mean Corpuscular Volume 90 80-99 FL Mean Corpuscular Hemoglobin 32 25-34 PG Mean Corpuscular Hemoglobin Concent 35 32-36 G/DL Red Cell Distribution Width 12.4 10.0-14.5 % Platelet Count 243 130-400 10^3/uL Mean Platelet Volume 10.8 H 7.4-10.4 FL Neutrophils (%) (Auto) 67 42-75 % Lymphocytes (%) (Auto) 24 12-44 % Monocytes (%) (Auto) 8 0-12 % Eosinophils (%) (Auto) 0 0-10 % Basophils (%) (Auto) 0 0-10 % Neutrophils # (Auto) 4.8 1.8-7.8 X 10^3 Lymphocytes # (Auto) 1.7 1.0-4.0 X 10^3 Monocytes # (Auto) 0.5 0.0-1.0 X 10^3 Eosinophils # (Auto) 0.0 0.0-0.3 10^3/uL Basophils # (Auto) 0.0 0.0-0.1 10^3/uL Sodium Level 138 135-145 MMOL/L Potassium Level 3.8 3.6-5.0 MMOL/L Chloride Level 103 98-107 MMOL/L Carbon Dioxide Level 22 21-32 MMOL/L Anion Gap 13 5-14 MMOL/L Blood Urea Nitrogen 10 7-18 MG/DL Creatinine 0.50 L 0.60-1.30 MG/DL Estimat Glomerular Filtration Rate > 60 BUN/Creatinine Ratio 20 Glucose Level 108 H 70-105 MG/DL Calcium Level 8.4 L 8.5-10.1 MG/DL Corrected Calcium 8.6 8.5-10.1 MG/DL Magnesium Level 1.9 1.8-2.4 MG/DL Total Bilirubin 0.2 0.1-1.0 MG/DL Aspartate Amino Transf (AST/SGOT) 46 H 5-34 U/L Alanine Aminotransferase (ALT/SGPT) 47 0-55 U/L Alkaline Phosphatase 36 L 40-136 U/L Total Protein 6.2 L 6.4-8.2 GM/DL Albumin 3.8 3.2-4.5 GM/DL Human Chorionic Gonadotropin, Quant [id number] H <5 MIU/ML Micro Results Microbiology 10/08/18 Wet Prep - Final, Complete My Orders Orders - VITO BANERJEE DO Ua Culture If Indicated (10/08/18 20:12) Hcg,Quantitative (10/08/18 20:27) Heart Tones (10/08/18 20:29) Ondansetron Oral Dissolve Tab (Zofran (10/08/18 20:29) Cbc With Automated Diff (10/08/18 20:30) Comprehensive Metabolic Panel (10/08/18 20:30) Magnesium (10/08/18 20:30) Ondansetron Oral Dissolve Tab (Zofran (10/08/18 20:32) Acetaminophen Tablet (Tylenol Tablet) (10/08/18 21:45) Cyclobenzaprine Tablet (Flexeril Tablet) (10/08/18 21:32) Wet Prep (10/08/18 22:42) Hydrocodone/Apap 7.5/325 Tab (Lortab 7. (10/08/18 23:15) Acetaminophen Tablet (Tylenol Tablet) (10/08/18 21:41) Cyclobenzaprine Tablet (Flexeril Tablet) (10/08/18 21:40) Hydrocodone/Apap 7.5/325 Tab (Lortab 7. (10/08/18 22:59) Medications Given in ED Current Medications Medications Dose Ordered Sig/Ciara Route Start Time Stop Time Status Last Admin Dose Admin Acetaminophen 1,000 mg ONCE ONCE PO 10/08/18 21:45 10/08/18 23:10 DC 10/08/18 21:47 1,000 MG Acetaminophen/ Hydrocodone Bitart 1 ea ONCE ONCE PO 10/08/18 23:15 10/08/18 23:15 DC 10/08/18 23:05 1 EA Vital Signs/I&O 10/08/18 23:08 Temp 98.7 Pulse 74 Resp 18 B/P (MAP) 99/54 (69) Pulse Ox 97 O2 Delivery Room Air Capillary Refill : Progress Note : Progress Note Discussed the patient c/ Dr. Hutchinson. He will see her in the office in the AM, 10/09, p/ 10 AM. Departure Impression Primary Impression: Discomfort during Disposition: 21 DIS/XFER [address]/LAW [place] Condition: Stable Departure-Patient Inst. Decision time for Depature: 23:03 Referrals: JENIFFER HUTCHINSON DO Patient Instructions: Activity During Add. Discharge Instructions: DR. HUTCHINSON WILL SEE HER IN HIS OFFICE AFTER 10 AM IN THE MORNING, 10/09. VITO BANERJEE DO Oct 08, 2018 20:17
[2018-10-08] MEDS ORDERED: ONDANSETRON 4 MG (ZOFRAN) ORAL DISSOLVE TAB PO STA (20:29)
[2018-10-08] MEDS ORDERED: ONDANSETRON 4 MG (ZOFRAN) ORAL DISSOLVE TAB ONE (20:32)
[2018-10-08 21:17] LABS: BASOPHILS % (AUTO) 0 % (0-10); EOSINOPHILS % (AUTO) 0 % (0-10); HEMATOCRIT 31 % (35-52); HEMOGLOBIN 10.9 G/DL (11.5-16.0); LYMPHOCYTES # (AUTO) 1.7 X 10^3 (1.0-4.0); LYMPHOCYTES % (AUTO) 24 % (12-44); MEAN CORPUSCULAR HEMOGLOBIN 32 PG (25-34); MEAN CORPUSCULAR HGB CONC 35 G/DL (32-36); MEAN CORPUSCULAR VOLUME 90 FL (80-99); MEAN PLATELET VOLUME 10.8 FL (7.4-10.4); MONOCYTES # (AUTO) 0.5 X 10^3 (0.0-1.0); MONOCYTES % (AUTO) 8 % (0-12); NEUTROPHILS # (AUTO) 4.8 X 10^3 (1.8-7.8); NEUTROPHILS % (AUTO) 67 % (42-75); PLATELET COUNT 243 10^3/uL (130-400); RED CELL DISTRIBUTION WIDTH 12.4 % (10.0-14.5); WHITE BLOOD COUNT 7.1 10^3/uL (4.3-11.0)
[2018-10-08] MEDS ORDERED: CYCLOBENZAPRINE 10 MG (FLEXERIL) TAB PO STA (21:32)
[2018-10-08] MEDS ORDERED: CYCLOBENZAPRINE 10 MG (FLEXERIL) TAB ONE (21:40)
[2018-10-08] MEDS ORDERED: ACETAMINOPHEN 500 MG TAB (TYLENOL) ONE (21:41)
[2018-10-08] MEDS ORDERED: ACETAMINOPHEN 500 MG TAB (TYLENOL) PO ONE (21:45)
[2018-10-08 21:54] LABS: BUN/CREATININE RATIO 20; CARBON DIOXIDE 22 MMOL/L (21-32); CHLORIDE 103 MMOL/L (98-107); GFR ESTIMATED > 60; POTASSIUM 3.8 MMOL/L (3.6-5.0); SODIUM 138 MMOL/L (135-145)
[2018-10-08 21:55] LABS: ALANINE AMINOTRANSFERASE 47 U/L (0-55); ALBUMIN 3.8 GM/DL (3.2-4.5); ALKALINE PHOSPHATASE 36 U/L (40-136); BILIRUBIN,TOTAL 0.2 MG/DL (0.1-1.0); CALCIUM 8.4 MG/DL (8.5-10.1); GLUCOSE 108 MG/DL (70-105); MAGNESIUM 1.9 MG/DL (1.8-2.4); TOTAL PROTEIN 6.2 GM/DL (6.4-8.2)
[2018-10-08 22:31] LABS: BILIRUBIN,URINE NEGATIVE (NEGATIVE); CLARITY,URINE CLEAR; COLOR,URINE YELLOW; GLUCOSE, URINE (UA) NEGATIVE (NEGATIVE); KETONES,URINE NEGATIVE (NEGATIVE); LEUKOCYTE ESTERASE ,URINE NEGATIVE (NEGATIVE); NITRITE,URINE NEGATIVE (NEGATIVE); PROTEIN,URINE NEGATIVE (NEGATIVE); UROBILINOGEN,URINE 0.2 MG/DL (NORMAL)
[2018-10-08 22:32] LABS: BACTERIA,URINE MODERATE /HPF
[2018-10-08] MEDS ORDERED: HYDROcodone/APAP 7.5 MG/325 MG (LORTAB, LORCET PLUS) TABLET PO ONE ×2 (22:59→23:15)
[2018-10-08 23:08] VITALS: BP 99/54
--- OUTSIDE RECORDS SUMMARY | 2018-10-09 01:45 | XMS REPORT | Continuity of Care Document ---
Author Organization Unknown Address Unknown Allergies Active Description Code Type Severity Reaction Onset Reported/Identified Relationship to Patient Clinical Status Yes MENINGOCOCCAL GRP B VACCINE ADS 02342 DRUG INGREDI N/A N/A Yes NO NAME AVAILABLE 44172 DRUG N/A N/A Yes CEFAZOLIN 08835 DRUG INGREDI N/A Hives 12/25/2017 12/25/2017 Yes POVIDONE IODINE 83701 DRUG INGREDI N/A Hives 12/25/2017 12/25/2017 Medications [...] SURGILUBE EX GEL 12/25/2017 PRN BUPIVACAINE-EPINEPHRINE 0.25% -1:875230 IJ SOLN 12/25/2017 PRN GELATIN ABSORBABLE 100 [...] Procedures Code Description Performed By Performed On [id number] Excision of Hemorrhoidal Plexus, Open Approach 12/25/2017 74530 [place] ANUS SURGERY PROCEDURE UNLISTED 12/25/2017 Results Test [...] NRG STATEMENT OF ADEQUACY: NRG INTERPRETATION/RESULT: NRG SAFETY COORDINATOR: NRG COMMENT NRG QUAD SCREEN - 10/03/18 10:50 Maternal Weight 129 lbs NRG Est'd Date of Delivery 03/11/2019 NRG RENAN Determined by LMP NRG Mother's Ethnic Origin NRG Number of Fetuses 1 NRG Insulin Depend Diabetic NO NRG Repeat Specimen NO NRG Hx Of Neural Tube Defects NO NRG Prev Down Synd NO NRG Donor Egg NO NRG Donor Age: Egg Retrieval NOT GIVEN NRG INTERPRETATION: NRG Risk for ONTD <1 IN 5000 NRG Age Risk Down Syndrome 1 IN 782 NRG JUDI Down Syndrome Risk 1 IN 2009 NRG JUDI Trisomy 18 Risk <1 IN 5000 NRG AFP, Serum 20.5 ng/mL NRG AFP MoM 0.48 NRG Estriol, Free 0.85 ng/mL NRG Estriol MoM 0.75 NRG hCG, Serum 30.06 IU/mL NRG hCG MoM 1.02 NRG Inhibin A, Dimeric 131 pg/mL NRG Inhibin A MoM 0.73 NRG COMMENTS: NRG COMMENT NRG Calc'd Gestational Age 17.3 weeks NRG Cigarette smoker NOT GIVEN NRG Encounters ACCT No. Visit Date/Time Discharge Status Pt. Type Provider Facility Loc./Unit Complaint [id number] 10/03/2018 10:15:00 10/03/2018 23:59:[address] [facility] [id number] 10/03/2018 10:15:00 Document Registration [id number] 08/03/2018 08:45:00 Document Registration [id number] 07/20/2018 10:00:00 Document Registration [id number] 08/20/2013 09:07:00 08/20/2013 23:59:59 CLS Outpatient VITO ESPINO APRN [id number] 07/09/2013 09:01:00 07/09/2013 23:59:59 CLS Outpatient VITO ESPINO APRN [id number] 06/18/2013 09:25:00 06/18/2013 23:59:59 CLS Outpatient VITO ESPINO APRN [id number] 01/30/2018 10:35:10 01/30/2018 23:59:59 CLS Outpatient [facility]IVE, J[facility] CLIVE [id number] 01/02/2018 10:33:59 01/02/2018 23:59:59 CLS Outpatient CLIVE, JAXSON [facility] CLIVE [id number] 12/25/2017 10:47:36 12/25/2017 17:16:00 DIS Outpatient CLIVE, JAXSON [facility] PER [id number] 11/21/2017 09:30:22 11/21/2017 23:59:59 CLS Outpatient CLIVE, JAXSON [facility] CLIVE [id number] 12/25/2017 13:38:49 Document Registration [id number] 12/22/2017 13:42:29 Document Registration [id number] 06/29/2012 04:57:00 Document Registration
== END 2018-10-08 23:08 ==
LOC: EDUNIT# 20:03 → ER FS 20:04
DX: O26.893 Other specified pregnancy related conditions, third trimester (principal); R10.30 Lower abdominal pain, unspecified; Z88.1 Allergy status to other antibiotic agents; Z3A.28 28 weeks gestation of pregnancy
CPT/HCPCS: 36415; 80053; 81000; 83735; 84702; 85025; 87210

== ENCOUNTER 2018-10-25 20:21 | Emergency (ER) | payer OTHER ==
[~2018-10-25] VITALS: Ht 157.5 cm; Wt 58.1 kg
[2018-10-25 20:47] LABS: BILIRUBIN,URINE NEGATIVE (NEGATIVE); CLARITY,URINE CLEAR; COLOR,URINE YELLOW; GLUCOSE, URINE (UA) NEGATIVE (NEGATIVE); KETONES,URINE NEGATIVE (NEGATIVE); NITRITE,URINE NEGATIVE (NEGATIVE); PH,URINE 6.5 (5-9); PROTEIN,URINE NEGATIVE (NEGATIVE); UROBILINOGEN,URINE 0.2 MG/DL (NORMAL)
[2018-10-25 20:48] LABS: BACTERIA,URINE FEW /HPF; LEUKOCYTE ESTERASE ,URINE NEGATIVE (NEGATIVE)
[2018-10-25] MEDS ORDERED: TERBUTALINE INJ 1 MG/ML (BRETHINE) AMP SC STA (20:48)
--- NOTE | 2018-10-25 21:19 | ED GU-Female ---
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 This has been an ongoing issue. Nursing Sepsis Screen: No Definite Risk Source: patient, other ([facility] Staff) History of Present Illness Date Seen by Provider: Oct 25, 2018 Time Seen by Provider: 20:56 Initial Comments 28-year-old female presenting from [facility] with complaints of abdominal pain that feels like contractions. She states that she has a history of premature labor. She has been following with Dr. Ger Hutchinson for her . She is approximately 20 weeks . She has not been having any vaginal discharge or bleeding however she does note some occasional pink or red color when she wipes. She has been having increasing pain and contractions sensation of her lower abdomen and what she feels is her uterus. She feels that these episodes are lasting for 30-45 seconds and are getting closer together. At the time of arriving to the emergency department she feels that they are happening approximately every 1-2 minutes. She denies having any gush of fluids. She states that she has not felt the baby move as much today either. She is taking some medication at the long term that does for labor and was not due until 10 PM but he did give it to her early tonight. However even with this she was still having pain that felt like contractions so they brought her to the emergency department for evaluation. Allergies and Home Medications Allergies Coded Allergies: cefazolin (Verified Allergy, Unknown, 08/25/18) Home Medications Acetaminophen 500 Mg Tablet, 1,000 MG PO Q6H PRN for PAIN-MILD TO MODERATE Prescribed by: ASTIRD SANTOS on 08/25/183 Metronidazole 500 Mg Tablet, 500 MG PO BID Prescribed by: BHAVANA BLOOM on 10/01/18 2316 Patient Home Medication List Home Medication List Reviewed: Yes Review of Systems Review of Systems Constitutional: No chills, No fever EENTM: no symptoms reported Respiratory: no symptoms reported Cardiovascular: no symptoms reported Gastrointestinal: no symptoms reported Genitourinary: see HPI Musculoskeletal: no symptoms reported Skin: no symptoms reported Past Ydvfkkj-Essxjm-Xjpgke Hx Past Med/Social Hx: Reviewed Nursing Past Med/Soc Hx Patient Social History Alcohol Use: Denies Use Recreational Drug Use: No Type Used: Electronic/Vapor 2nd Hand Smoke Exposure: No Recent Foreign Travel: No Contact w/Someone Who Travel: No Recent Infectious Disease Expo: No Recent Hopitalizations: No Physical Abuse: No Sexual Abuse: No Mistreated: No Seasonal Allergies Seasonal Allergies: No Past Medical History Surgeries: Yes Section, Gallbladder Respiratory: No Cardiac: No Neurological: No Genitourinary: No Gastrointestinal: No Musculoskeletal: No Endocrine: No HEENT: No Cancer: No Psychosocial: No Integumentary: No Physical Exam Vital Signs Vital Signs - First Documented 10/25/18 20:32 Temp 98.7 Pulse 96 Resp 18 B/P (MAP) 103/78 (86) Pulse Ox 100 O2 Delivery Room Air Capillary Refill : Less Than 3 Seconds Height, Weight, BMI Height: 5'2.00" Weight: 128lbs. 0oz. 58.535391jp; BMI Method:Stated General Appearance: WD/WN, mild distress (intermittently grimacing) HEENT: PERRL/EOMI, pharynx normal Cardiovascular: normal peripheral pulses, regular rate, rhythm Respiratory: chest non-tender, lungs clear, normal breath sounds Gastrointestinal: normal bowel sounds, soft, no pulsatile mass, other (gravid uterus and intermittently the area gets hard and abdomen cramps up) Pelvic: other (deferred) Neurologic/Psychiatric: alert, oriented x 3 Skin: normal color, warm/dry Progress/Results/Core Measures Suspected Sepsis Recent Fever Within 48 Hours: No Infection Criteria Present: None New/Unexplained Altered Menta: No Sepsis Screen: No Definite Risk SIRS Temperature:98.7 Pulse: 96 Respiratory Rate: 18 Blood Pressure 103 /78 Mean: 86 Results/Orders Lab Results Laboratory Tests Test 10/25/18 20:35 Range/Units Urine Color YELLOW Urine Clarity CLEAR Urine pH 6.5 5-9 Urine Specific [place] 1.010 L 1.016-1.022 Urine Protein NEGATIVE NEGATIVE Urine Glucose (UA) NEGATIVE NEGATIVE Urine Ketones NEGATIVE NEGATIVE Urine Nitrite NEGATIVE NEGATIVE Urine Bilirubin NEGATIVE NEGATIVE Urine Urobilinogen 0.2 NORMAL MG/DL Urine Leukocyte Esterase NEGATIVE NEGATIVE Urine RBC (Auto) NEGATIVE NEGATIVE Urine RBC NONE /HPF Urine WBC NONE /HPF Urine Squamous Epithelial Cells 2-5 /HPF Urine Crystals NONE /LPF Urine Bacteria FEW H /HPF Urine Casts NONE /LPF Urine Mucus TRACE /LPF Urine Culture Indicated NO My Orders Orders - ASTRID SANTOS MD Ua Culture If Indicated (10/25/18 20:37) Terbutaline Injection (Brethine Injectio (10/25/18 20:48) Vital Signs/I&O 10/25/18 10/25/18 20:32 21:27 Temp 98.7 98.7 Pulse 96 96 Resp 18 18 B/P (MAP) 103/78 (86) 103/78 (86) Pulse Ox 100 100 O2 Delivery Room Air Capillary Refill : Less Than 3 Seconds Blood Pressure Mean: 86 Progress Note : Progress Note UA does not show dehydration or infection. D/w Dr. Hutchinson and he advised that could try a dose of Terbutaline and see him in clinic in am but it would still not say if she was in Labor or not and that the only way to say if she was truly having contractions or not would be to send her to Labor and Delivery and have her get a formal evaluation. Will send her to [facility] for eval. Departure Impression Primary Impression: Abdominal pain during in second trimester Additional Impression: Premature uterine contractions Disposition: 21 DIS/[address]/LAW ENFORCE Condition: Stable Departure-Patient Inst. Decision time for Depature: 21:23 Referrals: GER HUTCHINSON DO (PCP/Family) Primary Care Physician Patient Instructions: Labor (DC) Add. Discharge Instructions: Go to [facility] Labor and Delivery for further evaluation to determine if you are having contractions and in Labor or not. All discharge instructions reviewed with patient and/or family. Voiced understanding. ASTRID SANTOS MD Oct 25, 2018 21:19
[2018-10-25 21:27] VITALS: BP 103/78
[2018-10-25] MEDS ORDERED: POLY17PO6 PO (22:57)
[2018-10-25] MEDS ORDERED: PREN-142 PO (22:57)
[2018-10-25] MEDS ORDERED: NIFE10CA PO (23:21)
--- OUTSIDE RECORDS SUMMARY | 2018-10-26 03:43 | XMS REPORT | Continuity of Care Document ---
Author Organization Unknown Address Unknown Phone Unavailable Allergies Active Description Code Type Severity Reaction Onset Reported/Identified Relationship to Patient Clinical Status Yes MENINGOCOCCAL GRP B VACCINE ADS 64462 DRUG INGREDI N/A N/A Yes NO NAME AVAILABLE 74273 DRUG N/A N/A Yes CEFAZOLIN 38118 DRUG INGREDI N/A Hives 12/25/2017 12/25/2017 Yes POVIDONE IODINE 85936 DRUG INGREDI N/A Hives 12/25/2017 12/25/2017 Medications [...] SURGILUBE EX GEL 12/25/2017 PRN BUPIVACAINE-EPINEPHRINE 0.25% -1:239938 IJ SOLN 12/25/2017 PRN GELATIN ABSORBABLE 100 [...] premature labor, antepartum(644.03) 06/18/2013 VITO ESPINO APRN T 380.10 OTITIS EXTERNA RIGHT 06/18/2013 VITO ESPINO APRN T 729.5 PAIN- ARM 06/18/2013 VITO ESPINO APRN T 380.10 OTITIS EXTERNA RIGHT 06/18/2013 VITO ESPINO APRN T 729.5 PAIN- ARM 06/18/2013 VITO ESPINO APRN T 380.10 OTITIS EXTERNA RIGHT 06/18/2013 VITO ESPINO APRN T 729.5 PAIN- ARM 07/09/2013 VITO ESPINO APRN 461.9 SINUSITIS ACUTE 07/09/2013 VITO ESPINO APRN 461.9 SINUSITIS ACUTE 08/20/2013 VITO ESPINO APRN T 462 PHARYNGITIS ACUTE 12/25/2017 CLIVE, JAXSON V [...] Procedures Code Description Performed By Performed On [id number] Excision of Hemorrhoidal Plexus, Open Approach 12/25/2017 06956 [place] ANUS SURGERY PROCEDURE UNLISTED 12/25/2017 Results Test [...] NRG STATEMENT OF ADEQUACY: NRG INTERPRETATION/RESULT: NRG CUSHION SEWER: NRG COMMENT NRG QUAD SCREEN - 10/03/18 [...] NRG JUDI Down Syndrome Risk 1 IN 2008 NRG JUDI Trisomy 18 Risk <1 IN [...] Status Pt. Type Provider Facility Loc./Unit Complaint [id number] 10/09/2018 11:00:00 10/09/2018 23:59:59 [facility] [id number] 10/03/2018 10:15:00 Document Registration [id number] 08/03/2018 08:45:00 Document Registration [id number] 07/20/2018 10:00:00 Document Registration [id number] 08/20/2013 09:07:00 08/20/2013 23:59:59 CLS Outpatient VITO ESIPNO APRN [id number] 07/09/2013 09:01:00 07/09/2013 23:59:59 CLS Outpatient VITO ESPINO APRN [id number] 06/18/2013 09:25:00 06/18/2013 23:59:59 CLS Outpatient VITO ESPINO APRN [id number] 01/30/2018 10:35:10 01/30/2018 23:59:59 CLS Outpatient CLIVE, JAXSON [facility] CLIVE [id number] 01/02/2018 10:33:59 01/02/2018 23:59:59 CLS Outpatient CLIVE, JAXSON [facility] CLIVE [id number] 12/25/2017 10:47:36 12/25/2017 17:16:00 DIS Outpatient CLIVE, JAXSON [facility] PER [id number] 11/21/2017 09:30:22 11/21/2017 23:59:59 CLS Outpatient CLIVE, JAXSON [facility] CLIVE [id number] 12/25/2017 13:38:49 Document Registration [id number] 12/22/2017 13:42:29 Document Registration [id number] 06/29/2012 04:57:00 Document Registration
== END 2018-10-25 21:27 ==
LOC: EDUNIT# 20:21 → ER FS 20:22
DX: O60.02 Preterm labor without delivery, second trimester (principal); Z88.1 Allergy status to other antibiotic agents; Z3A.20 20 weeks gestation of pregnancy
CPT/HCPCS: 81000

== ENCOUNTER 2018-10-25 22:33 | Outpatient (CLI) | payer OTHER ==
[~2018-10-25] VITALS: Ht 157.5 cm; Wt 60.3 kg
--- NOTE | 2018-10-25 22:35 | NUR ---
KIKE ROSS presented to unit via AMBULATORY from ED, [facility], with c/o ABD PAIN,CONTRACTIONS. KIKE ROSS weighed, gowned, voided, and to bed. EFHM and TOCO applied, VS taken. KIKE ROSS oriented to bed controls, call light, TV, heat, and A/C controls.
[2018-10-25 22:50] VITALS: BP 108/57
--- NOTE | 2018-10-25 22:52 | NUR ---
FHR dopplered at 144bpm.
[2018-10-25] MEDS ORDERED: PREN-142 PO (22:57)
[2018-10-25] MEDS ORDERED: POLY17PO6 PO (22:57)
--- NOTE | 2018-10-25 23:02 | NUR ---
This RN called Dr Hutchinson to notify of patient arrival. aware of patient as she was seen over in [facility] ER prior to arrival on this unit. Notified of FHR dopplered at 144 beats per minute, UA results from [facility] ER from earlier this evening, Contraction pattern, size, shape and duration. New orders received. See emar, ok to discharge home.
[2018-10-25] MEDS ORDERED: CYCLOBENZAPRINE 10 MG (FLEXERIL) TAB ONE (23:05)
[2018-10-25] MEDS ORDERED: CYCLOBENZAPRINE 10 MG (FLEXERIL) TAB PO ONE (23:15)
--- NOTE | 2018-10-25 23:17 | NUR ---
TOCO appears to order picker/assembler what are possibly patient manufactured based on abrupt onset and descent and blunt square shape, lasting 40-60 sec, 1-5min apart. Possibly two contractions present throughout, lasting 60-70sec, 4 min apart. No contractions able to be palpated, abd remains non tender.
[2018-10-25] MEDS ORDERED: NIFE10CA PO (23:21)
--- NOTE | 2018-10-25 23:28 | NUR ---
Discharge education and handouts given to patient. Patient verbalizes understanding.
--- NOTE | 2018-10-25 23:34 | NUR ---
Patient and ammunition officer ambulating off of unit.
== END 2018-10-25 23:28 | disposition home or self-care (01) ==
LOC: WSo 22:33 → LDRP 22:33 → WSo 23:28
PROVIDERS: ATTEND Obstetrics & Gynecology
DX: O62.9 Abnormality of forces of labor, unspecified (principal); Z3A.18 18 weeks gestation of pregnancy
CPT/HCPCS: 99212

== ENCOUNTER 2018-11-02 20:07 | Emergency (ER) | payer OTHER ==
[~2018-11-02] VITALS: Ht 157.5 cm; Wt 59.0 kg
[~2018-11-02 20:07] MED LIST changes: +NIFE10CA PO; +POLY17PO6 PO; +PREN-142 PO
[2018-11-02] MEDS ORDERED: LACTATED RINGERS 1,000 ML IV ONE (20:42)
[2018-11-02] MEDS ORDERED: diphenhydrAMINE 50 MG/ML INJ (BENADRYL) IVP ONE (20:45)
[2018-11-02 20:48] LABS: BILIRUBIN,URINE NEGATIVE (NEGATIVE); CLARITY,URINE CLEAR; COLOR,URINE YELLOW; GLUCOSE, URINE (UA) NEGATIVE (NEGATIVE); KETONES,URINE NEGATIVE (NEGATIVE); LEUKOCYTE ESTERASE ,URINE NEGATIVE (NEGATIVE); NITRITE,URINE NEGATIVE (NEGATIVE); PROTEIN,URINE NEGATIVE (NEGATIVE); UROBILINOGEN,URINE 0.2 MG/DL (NORMAL)
[2018-11-02 20:49] LABS: AMORPHOUS SEDIMENT,UR FEW AMOR PHOSPHATE /LPF; BACTERIA,URINE FEW /HPF; WBC,URINE 0-2 /HPF
--- NOTE | 2018-11-02 20:59 | ED GU-Female ---
General Chief Complaint: SHADER AND TONER Stated Complaint: CONTRACTIONS Nursing Triage Note: [facility] COMPLAINT OF CONTRACTIONS THAT HAVE BEEN GOING ON FOR 4 HOURS BELT CONVEYOR DRIER. PT IS 20 WEEKS Nursing Sepsis Screen: No Definite Risk Source: patient, old records Exam Limitations: no limitations History of Present Illness Date Seen by Provider: Nov 02, 2018 Time Seen by Provider: 20:35 Initial Comments This 28-year-old woman at approximately 20 weeks gestational age by reported due date from ultrasound of March 22 presents to the emergency room with complaints of feelings of contractions. She has a cramping sensation that is fairly intense that occurs every few minutes and lasts for about one minute. She had a similar presentation on October 25 and was sent to [facility] from [place] for further assessment on the labor and delivery unit. She does have a history of labor with prior pregnancies and is presently on nifedipine 10 mg 3 times a day for prevention of labor. She denies any dysuria or urinary symptoms. She does complain of some slight pink color when wiping. She had the same complaint on October 25. Her annealing furnace operator is Dr. Hutchinson. Patient is presently incarcerated. She reports having an ultrasound during this with an estimated due date of March 22. She reports having pelvic exams 2 and no intercourse since her last pelvic exam. In September she was diagnosed with bacterial vaginosis and treated with Flagyl. Patient is incarcerated and presents with a guard. She received Tylenol at 18:45. Allergies and Home Medications Allergies Coded Allergies: cefazolin (Verified Allergy, Severe, Anaphylaxis, 10/25/18) Home Medications Nifedipine 10 Mg Capsule, 20 MG PO TID, (Reported) Polyethylene Glycol 3350 17 Gm Powd.pack, 17 GM PO DAILY, (Reported) Vit No.124/Iron/FA 1 Each Tablet, 1 EACH PO DAILY, (Reported) Patient Home Medication List Home Medication List Reviewed: Yes Review of Systems Review of Systems Constitutional: no symptoms reported EENTM: no symptoms reported Respiratory: no symptoms reported Cardiovascular: no symptoms reported Gastrointestinal: see HPI Genitourinary: see HPI : Yes Expected Date of Delivery: Mar 22, 2019 Musculoskeletal: no symptoms reported Skin: no symptoms reported Psychiatric/Neurological: No Symptoms Reported Endocrine: No Symptoms Reported Hematologic/Lymphatic: No Symptoms Reported Past Zeyvpsr-Eeiqnt-Xypcjp Hx Past Med/Social Hx: Reviewed and Corrections made Patient Social History Alcohol Use: Denies Use Recreational Drug Use: No Type Used: Electronic/Vapor 2nd Hand Smoke Exposure: No Recent Foreign Travel: No Contact w/Someone Who Travel: No Recent Infectious Disease Expo: No Recent Hopitalizations: No Physical Abuse: No Sexual Abuse: No Mistreated: No Seasonal Allergies Seasonal Allergies: No Past Medical History Surgeries: Yes Section, Gallbladder, Orthopedic (knee) Respiratory: No Cardiac: No Neurological: No : Yes Expected Date of Delivery: Mar 22, 2019 Reproductive Disorders: Yes (history of labor) Genitourinary: No Gastrointestinal: No Musculoskeletal: No Endocrine: No HEENT: No Cancer: No Psychosocial: No Integumentary: No Physical Exam Vital Signs Vital Signs - First Documented 11/02/18 20:15 Temp 99.1 Pulse 78 Resp 18 B/P (MAP) 100/45 (63) Pulse Ox 99 O2 Delivery Room Air Capillary Refill : Less Than 3 Seconds Height, Weight, BMI Height: 5'2.00" Weight: 130lbs. 0.0oz. 58.157498km; 24.3 BMI Method:Stated General Appearance: WD/WN, no apparent distress HEENT: PERRL/EOMI, normal ENT inspection Neck: normal inspection Cardiovascular: regular rate, rhythm, no edema, no murmur Respiratory: lungs clear, normal breath sounds, no respiratory distress, no accessory muscle use Gastrointestinal: soft, tenderness (minimal), other (abdomen appears appropriately gravid for 20 weeks gestational age. Uterus does feel somewhat firm when patient feels a contraction.) Extremities: normal inspection, no pedal edema Neurologic/Psychiatric: mixed signal design engineer II-XII nml as tested, no motor/sensory deficits, alert, normal mood/affect, oriented x 3 Skin: normal color, warm/dry Progress/Results/Core Measures Suspected Sepsis Recent Fever Within 48 Hours: No Infection Criteria Present: None New/Unexplained Altered Menta: No Sepsis Screen: No Definite Risk SIRS Temperature:99.1 Pulse: 78 Respiratory Rate: 18 Blood Pressure 100 /45 Mean: 63 Laboratory Tests 11/02/18 21:07: Creatinine 0.51L Results/Orders Lab Results Laboratory Tests Test 11/02/18 20:18 11/02/18 21:07 Range/Units Urine Color YELLOW Urine Clarity CLEAR Urine pH 8.0 5-9 Urine Specific [place] 1.010 L 1.016-1.022 Urine Protein NEGATIVE NEGATIVE Urine Glucose (UA) NEGATIVE NEGATIVE Urine Ketones NEGATIVE NEGATIVE Urine Nitrite NEGATIVE NEGATIVE Urine Bilirubin NEGATIVE NEGATIVE Urine Urobilinogen 0.2 NORMAL MG/DL Urine Leukocyte Esterase NEGATIVE NEGATIVE Urine RBC (Auto) NEGATIVE NEGATIVE Urine RBC NONE /HPF Urine WBC 0-2 /HPF Urine Squamous Epithelial Cells 2-5 /HPF Urine Crystals PRESENT H /LPF Urine Amorphous Sediment FEW [place] PHOSPHATE H /LPF Urine Bacteria FEW H /HPF Urine Casts NONE /LPF Urine Mucus NONE /LPF Urine Culture Indicated NO Sodium Level 138 135-145 MMOL/L Potassium Level 4.0 3.6-5.0 MMOL/L Chloride Level 102 98-107 MMOL/L Carbon Dioxide Level 21 21-32 MMOL/L Anion Gap 15 H 5-14 MMOL/L Blood Urea Nitrogen 11 7-18 MG/DL Creatinine 0.51 L 0.60-1.30 MG/DL Estimat Glomerular Filtration Rate > 60 BUN/Creatinine Ratio 22 Glucose Level 97 70-105 MG/DL Calcium Level 8.8 8.5-10.1 MG/DL My Orders Orders - MIREYA ZULETA MD Ua Culture If Indicated (11/02/18 20:37) Lactated Ringers (Lr 1000 Ml Iv Solution (11/02/18 20:42) Basic Metabolic Panel (11/02/18 20:42) Diphenhydramine Injection (Benadryl Inje (11/02/18 20:45) Terbutaline Injection (Brethine Injectio (11/02/18 21:15) Medications Given in ED Current Medications Medications Dose Ordered Sig/Ciara Route Start Time Stop Time Status Last Admin Dose Admin Diphenhydramine HCl 25 mg ONCE ONCE IVP 11/02/18 20:45 11/02/18 20:46 DC 11/02/18 21:04 25 MG Lactated Ringer's 1,000 ml @ 0 mls/hr Q0M ONCE IV 11/02/18 20:42 11/02/18 20:44 DC 11/02/18 21:04 999 MLS/HR Terbutaline Sulfate 0.25 mg ONCE ONCE SC 11/02/18 21:15 11/02/18 21:16 DC 11/02/18 21:24 0.25 MG Vital Signs/I&O 11/02/18 11/02/18 11/02/18 20:15 23:16 23:20 Temp 99.1 Pulse 78 70 71 71 71 Resp 18 18 B/P (MAP) 100/45 (63) 90/43 (59) 97/52 (67) 95/45 (62) 97/52 (67) Pulse Ox 99 98 O2 Delivery Room Air Room Air 11/03/18 00:00 Intake Total 1000 ml Balance 1000 ml Capillary Refill : Less Than 3 Seconds Blood Pressure Mean: 63 Progress Note #1: Time: 21:15 Progress Note Patient was seen and examined. Chart was reviewed. Case was discussed with Dr. Hutchinson. He reports this is a recurrent problem and well known to him. Patient has not proven to be in labor with prior episodes of similar symptoms. He recommended completing the 1 L of hydration, Benadryl, and a dose of subcutaneous terbutaline 0.25 mg and discharging her back to the longterm. UA was unremarkable. BMP is pending. Progress Note #2: Progress Note Workup was unremarkable. Patient had modest improvement with terbutaline, IV fluids, and Benadryl. Blood pressure was low with systolic blood pressure as low as 88. The cuff was replaced and blood pressures rechecked. Blood pressure was then 90 and above a systolic including measurements taken with orthostatic blood pressures. Review of chart notes patient typically does have lower blood pressures. She was dismissed with law-enforcement in stable condition. Departure Impression Primary Impression: Abdominal cramping affecting Disposition: HOME, SELF-CARE Condition: Stable Departure-Patient Inst. Decision time for Depature: 22:36 Referrals: JENIFFER HUTCHINSON DO (PCP/Family) Primary Care Physician Patient Instructions: NO INSTRUCTIONS GIVEN Add. Discharge Instructions: Continue with your medications as previously prescribed. Return to care with worsening symptoms. Drink plenty of clear liquids. Follow-up with Dr. Hutchinson on Monday morning. All discharge instructions reviewed with patient and/or family. Voiced understanding. Copy Copies To 1: JENIFFER HUTCHINSON JOSHUA T MD Nov 02, 2018 20:59
[2018-11-02] MEDS ORDERED: TERBUTALINE INJ 1 MG/ML (BRETHINE) AMP SC ONE (21:15)
[2018-11-02 21:35] LABS: SODIUM 138 MMOL/L (135-145)
[2018-11-02 21:36] LABS: BUN/CREATININE RATIO 22; CALCIUM 8.8 MG/DL (8.5-10.1); CARBON DIOXIDE 21 MMOL/L (21-32); CHLORIDE 102 MMOL/L (98-107); CREATININE SERUM 0.51 MG/DL (0.60-1.30); GFR ESTIMATED > 60; GLUCOSE 97 MG/DL (70-105)
[2018-11-02 23:16] VITALS: BP_SYST 90; BP_SYST 95; BP_SYST 97; BP_DIAS 43; BP_DIAS 45; BP_DIAS 52
[2018-11-02 23:20] VITALS: BP 97/52
== END 2018-11-02 23:20 | disposition home or self-care (01) ==
LOC: EDUNIT# 20:07 → ER FS 20:08
DX: O26.892 Other specified pregnancy related conditions, second trimester (principal); R10.9 Unspecified abdominal pain; Z88.1 Allergy status to other antibiotic agents; Z3A.20 20 weeks gestation of pregnancy
CPT/HCPCS: 36415; 80048; 81000

== ENCOUNTER 2018-11-14 15:45 | Outpatient (CLI) | payer OTHER ==
[~2018-11-14] VITALS: Ht 157.5 cm; Wt 64.0 kg
[2018-11-14] VITALS (7 sets, daily range): BP systolic 87–95; BP diastolic 44–55
--- NOTE | 2018-11-14 15:00 | NUR ---
Dr Hutchinson called over orders to Estephanie Wilkinson RN prior to pt arrival. Pt was seen in office today with labor.
[~2018-11-14 15:45] MED LIST changes: +TERBUTALINE INJ 1 MG/ML (BRETHINE) AMP SC NR
--- NOTE | 2018-11-14 15:45 | NUR ---
KIKE ROSS presented to unit via ambulatory in orange scrubs and cuffed from [facility], accompanied by corectional staff, with c/o CONTRACTIONS. KIKE ROSS weighed, gowned, voided, and to bed. EFHM and TOCO applied, VS taken. KIKE ROSS oriented to bed controls, call light, TV, heat, and A/C controls.
--- NOTE | 2018-11-14 15:45 | NUR ---
11/14/181855 Note on: KIKE ROSS S: O: A: P:
[2018-11-14] MEDS ORDERED: LACTATED RINGERS 1,000 ML IV SCH (17:30)
[2018-11-14] MEDS ORDERED: LACTATED RINGERS 1,000 ML IV ONE (17:45)
[2018-11-14 17:47] LABS: BILIRUBIN,URINE NEGATIVE (NEGATIVE); CLARITY,URINE CLEAR; COLOR,URINE YELLOW; GLUCOSE, URINE (UA) NEGATIVE (NEGATIVE); KETONES,URINE NEGATIVE (NEGATIVE); LEUKOCYTE ESTERASE ,URINE NEGATIVE (NEGATIVE); NITRITE,URINE NEGATIVE (NEGATIVE); PH,URINE 8 (5-9); PROTEIN,URINE NEGATIVE (NEGATIVE); UROBILINOGEN,URINE NORMAL (NORMAL)
[2018-11-14 17:57] LABS: BACTERIA,URINE NEGATIVE /HPF; SQUAMOUS EPITHELIAL CELL,UR RARE /HPF
[2018-11-14] MEDS ORDERED: NIFEdipine 10 MG CAPS (WOMEN'S SERVICES ONLY!!!) PO SCH (18:00)
[2018-11-14] MEDS ORDERED: TERBUTALINE INJ 1 MG/ML (BRETHINE) AMP SC NR (18:00)
--- NOTE | 2018-11-14 20:35 | NUR ---
D/C instructions given & explained, pt. verbalized understanding & signed, instructed pt. to cont. taking home meds as sched. Pt. left [facility] ambulatory escorted by housing management officer, to home (back to assisted) via vehicle.
[2018-11-14] MEDS ORDERED: CATHETER FLUSH 10 ML SYR IV SCH (22:00)
--- NOTE | 2018-11-15 08:53 | Physician Query-Final Dx ---
MELINA OJEDA 11/15/18 0853: Clinic Account Progress/Dx Physician Query: Please give diagnosis Please remember to include gestation weeks Date of Service Nov 14, 2018 at 15:45 JENIFFER MARTINEZ DO 11/21/18 0557: Clinic Account Progress/Dx Physician Query: Please give diagnosis (Intrauterine Pregnanct at 21 weeks 2. Pelvic Pain 3. Threatened Labor) Patient presented to with Contractions. Given IV fluids and Terbutaline. DIAGNOSIS: Diagnosis Intrauterine Pregnanct at 21 weeks 2. Pelvic Pain 3. Threatened Labor MELINA OJEDA Nov 15, 2018 08:53 JENIFFER MARTINEZ DO Nov 21, 2018 05:57
[2018-11-17] MEDS ORDERED: PROG200C10 PO (09:02)
[2018-11-17] MEDS ORDERED: NF-MAG64T PO (09:12)
== END 2018-11-14 20:35 | disposition home or self-care (01) ==
LOC: WSo 15:45 → LDRP 17:21 → WSo 20:35
PROVIDERS: ATTEND Obstetrics & Gynecology
DX: O47.02 False labor before 37 completed weeks of gestation, second trimester (principal); Z3A.21 21 weeks gestation of pregnancy
CPT/HCPCS: 81000; 96360; 96361; 96372; 99213

== ENCOUNTER 2018-11-16 16:15 | Outpatient (CLI) | payer OTHER ==
[~2018-11-16] VITALS: Ht 157.5 cm; Wt 64.4 kg
[2018-11-16] VITALS (13 sets, daily range): BP systolic 83–108; BP diastolic 46–56
--- NOTE | 2018-11-16 16:10 | NUR ---
KIKE ROSS presented to unit via ambulatory from [facility], accompanied by chief green officer, with c/o CONTRACTIONS. KIKE ROSS weighed, gowned, voided, and to bed. EFHM and TOCO applied, VS taken. KIKE ROSS oriented to bed controls, call light, TV, heat, and A/C controls. Patient states she has felt contractions every few minutes since last night. States they feel harder today than last night. Patient feels them in lower back. Denies leaking fluid or bleeding from vagina.
[~2018-11-16 16:15] MED LIST changes: -TERBUTALINE INJ 1 MG/ML (BRETHINE) AMP SC NR
[2018-11-16 16:38] LABS: BILIRUBIN,URINE NEGATIVE (NEGATIVE); CLARITY,URINE CLEAR; COLOR,URINE YELLOW; GLUCOSE, URINE (UA) NEGATIVE (NEGATIVE); KETONES,URINE NEGATIVE (NEGATIVE); LEUKOCYTE ESTERASE ,URINE NEGATIVE (NEGATIVE); NITRITE,URINE NEGATIVE (NEGATIVE); PH,URINE 7 (5-9); PROTEIN,URINE 1+ (NEGATIVE); UROBILINOGEN,URINE 1 MG/DL (NORMAL)
--- NOTE | 2018-11-16 16:45 | NUR ---
Dr. Hutchinson called and notified of patient admit and status. Patient is 22 weeks gestation with EDC of Mar 22, 2019. Contractions noted every 2-3 min, 50-60 sec, mild to palpation. FHR 145 baseline with occasional quick variables. No accels noted at this gestation, but movement heard with monitoring. Patient does not appear to be in distress, but rates pain a 7 on pain scale.
--- NOTE | 2018-11-16 16:51 | NUR ---
SVE per Luisa Lutz RN Closed, high, not effaced
[2018-11-16] MEDS ORDERED: NIFEdipine 10 MG CAPS (WOMEN'S SERVICES ONLY!!!) PO ONE ×2 (16:58→17:15)
[2018-11-16] MEDS ORDERED: TERBUTALINE INJ 1 MG/ML (BRETHINE) AMP ONE (16:58)
[2018-11-16 17:00] LABS: BACTERIA,URINE FEW /HPF; RBC,URINE 0-2 /HPF; SQUAMOUS EPITHELIAL CELL,UR 0-2 /HPF; WBC,URINE 0-2 /HPF
[2018-11-16] MEDS ORDERED: TERBUTALINE INJ 1 MG/ML (BRETHINE) AMP SC ONE (17:15)
[2018-11-16] MEDS ORDERED: CYCL10TA9 PO (17:37)
[2018-11-16] MEDS ORDERED: D5 LR IV SOLUTION 1,000 ML IV ONE (18:07)
[2018-11-16] MEDS ORDERED: CALCIUM GLUC. 10% 4.65 MEQ/10 ML VIAL IV PRN (18:15)
[2018-11-16] MEDS ORDERED: MAGNESIUM 4 GM/100 ML IVPB 100 ML IV SCH (18:15)
[2018-11-16] MEDS: D5 LR IV SOLUTION 1,000 ML IV SCH (18:22)
[2018-11-16] MEDS: MAGNESIUM SULFATE DRIP 500 ML IV SCH (18:55)
[2018-11-17] VITALS (10 sets, daily range): BP systolic 77–103; BP diastolic 5–65
[2018-11-17] MEDS: MAGNESIUM SULFATE DRIP 500 ML IV SCH (04:54)
[2018-11-17] MEDS ORDERED: ACETAMINOPHEN 500 MG TAB (TYLENOL) PO PRN (06:15)
[2018-11-17] MEDS: D5 LR IV SOLUTION 1,000 ML IV SCH (07:52)
--- NOTE | 2018-11-17 08:44 | NUR ---
DR. MARTINEZ HERE.
--- NOTE | 2018-11-17 08:58 | History & Physical-OB ---
OB - Chief Complaint & HPI Date/Time Date of Admission: November 16, 2018Date of Admission: Date seen by a Provider: Nov 17, 2018 Time Seen by a Provider: 08:45 Chief Complaint/History OB-Reason for Admission/Chief: Labor Hx : 4 Hx Para: 3 Expected Date of Delivery: Mar 22, 2019 Gestational Age in Weeks: 22 Gestational Age in Days: 0 Admission Nurse Assessment Rev: Yes Allergies and Home Medications Allergies Coded Allergies: cefazolin (Verified Allergy, Severe, Anaphylaxis, 10/25/18) Home Medications Cyclobenzaprine HCl 10 Mg Tablet, 10 MG PO BID, (Reported) Nifedipine 10 Mg Capsule, 20 MG PO Q6H, (Reported) Polyethylene Glycol 3350 17 Gm Powd.pack, 17 GM PO DAILY, (Reported) Vit No.124/Iron/FA 1 Each Tablet, 1 EACH PO DAILY, (Reported) Patient Home Medication List Home Medication List Reviewed: Yes OB - History Hx of Present Care: Yes Ultrasounds: Normal mid trimester US Obstetrical Complications: Other (Threatened Labor) Medical Complications: None Information Induced Hypertension: No Maternal Gestational Diabetes: No Hemorrhage: No Obstetrical History Hx : 4 Hx Para: 3 Hx # Pregnancies: 2 Number of Living Children: 3 Hx Termination: No Hx Total # of Abortions (Spona: 0 Patient Past Medical History Noncontributory Social History/Family History HIV/AIDS: No (Ms. Mariano is incarcerated) Recent Infectious Disease Expo: No 2nd Hand Smoke Exposure: No OB - Admission Exam Physical Exam Vitals: Vital Signs HEENT: NCAT Heart: Rhythm Normal Lungs: Clear Abdomen: Gravid Extremities: Normal Reflexes: Normal Cervical Dilatation: None Effacement: 25% Station: -3 Heart Rate: 130's Accelerations: Accelerations Present Decelerations: No Decelerations Short Term Variability: Present Customer Solutions Architect Variability: Average (6-25) Contractions on Admission: >10 Minutes Apart Intensity: Mild Brock Scoring Tool (Modified) Dilation (cm): 0/Closed (0) Labs Laboratory Tests Test 11/16/18 16:10 Range/Units Urine Color YELLOW Urine Clarity CLEAR Urine pH 7 5-9 Urine Specific [place] 1.010 L 1.016-1.022 Urine Protein 1+ H NEGATIVE Urine Glucose (UA) NEGATIVE NEGATIVE Urine Ketones NEGATIVE NEGATIVE Urine Nitrite NEGATIVE NEGATIVE Urine Bilirubin NEGATIVE NEGATIVE Urine Urobilinogen 1 NORMAL MG/DL Urine Leukocyte Esterase NEGATIVE NEGATIVE Urine RBC (Auto) NEGATIVE NEGATIVE Urine RBC 0-2 /HPF Urine WBC 0-2 /HPF Urine Squamous Epithelial Cells 0-2 /HPF Urine Crystals NONE /LPF Urine Bacteria FEW H /HPF Urine Casts NONE /LPF Urine Mucus SMALL H /LPF Urine Culture Indicated NO OB - Assessment/Plan/Diagnosis Assessment Assessment: IUP - Admission Dx Intrauterine at 22 weeks 2. Threatened Labor 3. Pelvic Pain 4. Incarceration Admission Status: Observation Reason for Inpatient Admission: 22 weeks gestation with onset of contractions Plan Plan: Other (IV fluids. Terbutaline x two doses. Magnesium Sulfate. Betamethasone intramuscularly. External Monitor with observation) Discharge Diagnosis Diagnosis: Intrauterine at 22 weeks 2. Threatened Labor 3. Pelvic Pain 4. Incarceration JENIFFER MARTINEZ DO Nov 17, 2018 08:58
[2018-11-17] MEDS ORDERED: PROG200C10 PO (09:02)
[2018-11-17] MEDS ORDERED: NF-MAG64T PO (09:12)
--- NOTE | 2018-11-17 09:17 | Discharge Summary ---
Diagnosis/Chief Complaint Date of Admission November 16, 2018 Date of Discharge November 17, 2018 Discharge Date: Nov 17, 2018 Discharge Time: 10:00 Admission Diagnosis Admission Diagnosis Intrauterine at 22 weeks 2. Threatened Labor 3. Pelvic Pain 4. Incarceration Discharge Diagnosis Intrauterine at 22 weeks 2. Threatened Labor 3. Pelvic Pain 4. Incarceration Reason Hospital Visit 22 week gestation with contractions Discharge Summary Hospital Course Was the Problem List Reviewed?: Yes Hospital Course Ms. Mariano was admitted secondary to having regular contractions at 22 weeks gestation. She was initially treated with IV fluids and terbutaline with no resolution of contractions. She was given Magnesium Sulfate. Contractions disappeared. I will discharge her to home with oral Magnesium and Progesterone. She was given Betamethasone prior to discharge. She will follow up in my office in four days. Labs Laboratory Tests 11/16/18 16:10: Urine Specific [place] 1.010L, Urine Protein 1+H, Urine Bacteria FEWH, Urine Mucus SMALLH Procedures None. Discharge Physical Examination Allergies: Coded Allergies: cefazolin (Verified Allergy, Severe, Anaphylaxis, 10/25/18) Vitals & I&Os Vital Signs Date Time Temp Pulse Resp B/P (MAP) Pulse Ox O2 Delivery O2 Flow Rate FiO2 11/17/18 07:00 83 18 103/5 (37) 98 Room Air 11/17/18 06:00 97.1 General Appearance: Alert, Oriented X3, Cooperative HEENT: Atraumatic Respiratory: Clear to Auscultation Cardiovascular: Regular Rate Abdominal: Normal Bowel Sounds Extremities: No Clubbing, No Cyanosis Skin: No Rashes Neuro: Normal Gait, Normal Speech Psych/Mental Status: Mental Status NL Discharge Home Medications Reviewed and agree with Discharge Medication list on patient's Discharge Instruction sheet Instructions to Patient/Family Please see electronic discharge instructions given to patient. JENIFFER MARTINEZ DO Nov 17, 2018 09:17
--- NOTE | 2018-11-17 09:26 | NUR ---
REFER TO LABOR FLOW SHEET.
[2018-11-17] MEDS ORDERED: BETAMETHASONE ACE/NA PHOS 6 MG/ML (CELESTONE SOLUSPAN) ONE (09:30)
[2018-11-17] MEDS ORDERED: BETAMETHASONE ACE/NA PHOS 6 MG/ML (CELESTONE SOLUSPAN) IM SCH (09:46)
--- NOTE | 2018-11-17 09:50 | NUR ---
DISCHARGE PAPERS PROVIDED AND REVIEWED WITH PT, PT VERBALIZES UNDERSTANDING AND DENIES ANY QUESTIONS AT THIS TIME. PAPER SIGNED.
--- NOTE | 2018-11-17 10:05 | NUR ---
PT AMBULATES FROM [facility] TO [facility] IN STABLE CONDITION ACC BY [facility] HALFWAY STAFF.
--- NOTE | 2018-11-17 12:17 | NUR ---
THIS RN RECEIVES A PHONE CALL FROM [facility] AT [facility] IN [place]. SLOW MAG IS NOW ONLY AVAILABLE IN 71[address] MARTINEZ CALLED PER THIS RN, DR BIGGS TO PROCEED. [facility] @ [facility] NOTIFIED.
== END 2018-11-17 10:05 | disposition home or self-care (01) ==
LOC: LDRP 16:15 → WSo 16:15 → EEVIPCON 16:15 → WSo 11-17 10:05
PROVIDERS: ATTEND Obstetrics & Gynecology
DX: O47.02 False labor before 37 completed weeks of gestation, second trimester (principal); O34.512 Maternal care for incarceration of gravid uterus, second trimester; Z3A.22 22 weeks gestation of pregnancy
CPT/HCPCS: 81000; 87088; 96361; 96372; 96374; 96376

== ENCOUNTER 2019-02-09 21:59 | Outpatient (CLI) | payer OTHER ==
[~2019-02-09] VITALS: Ht 157.5 cm; Wt 74.3 kg
[~2019-02-09 21:59] MED LIST changes: +CYCL10TA9 PO; +NF-MAG64T PO; +PROG200C10 PO
--- NOTE | 2019-02-09 22:10 | NUR ---
KIKE ROSS presented to unit via ambulation from ED, accompanied by family, with c/o CONTRACTIONS. KIKE ROSS weighed, gowned, voided, and to bed. EFHM and TOCO applied, VS taken. KIKE ROSS oriented to bed controls, call light, TV, heat, and A/C controls.
[2019-02-09 22:23] VITALS: BP 134/71
[2019-02-09 22:30] LABS: BILIRUBIN,URINE NEGATIVE (NEGATIVE); CLARITY,URINE CLEAR; COLOR,URINE YELLOW; GLUCOSE, URINE (UA) NEGATIVE (NEGATIVE); KETONES,URINE NEGATIVE (NEGATIVE); LEUKOCYTE ESTERASE ,URINE NEGATIVE (NEGATIVE); NITRITE,URINE NEGATIVE (NEGATIVE); PH,URINE 6.5 (5-9); PROTEIN,URINE NEGATIVE (NEGATIVE)
[2019-02-09 22:45] LABS: AMPHETAMINE SCREEN, URINE NEGATIVE (NEGATIVE); BARBITURATE SCREEN URINE NEGATIVE (NEGATIVE); BENZODIAZEPINES SCREEN URINE NEGATIVE (NEGATIVE); CANNABINOID SCREEN, URINE NEGATIVE (NEGATIVE); COCAINE SCREEN URINE NEGATIVE (NEGATIVE); METHADONE STAT NEGATIVE (NEGATIVE); METHAMPHETAMINE SCREEN URINE S NEGATIVE (NEGATIVE); OPIATE SCREEN URINE NEGATIVE (NEGATIVE); OXYCODONE STAT NEGATIVE (NEGATIVE); PROPOXYPHENE STAT NEGATIVE (NEGATIVE); TRICYCLIC ANTIDEPRESSANTS SCRE NEGATIVE (NEGATIVE)
[2019-02-09 22:56] VITALS: BP 134/71
[2019-02-09 23:04] LABS: AMORPHOUS SEDIMENT,UR MOD AMOR URATES /LPF; BACTERIA,URINE FEW /HPF; WBC,URINE RARE /HPF
--- NOTE | 2019-02-09 23:09 | NUR ---
notified of pt's arrival, exam, tracing, and u/a results. new orders received.
[2019-02-09] MEDS ORDERED: TERBUTALINE INJ 1 MG/ML (BRETHINE) AMP ONE (23:12)
[2019-02-09] MEDS ORDERED: TERBUTALINE INJ 1 MG/ML (BRETHINE) AMP SC ONE (23:15)
[2019-02-09] MEDS ORDERED: LACTATED RINGERS 1,000 ML IV SCH (23:15)
[2019-02-10 00:30] VITALS: BP 102/59
--- NOTE | 2019-02-10 00:37 | NUR ---
notified of pt's tracing and exam. order to discharge home received.
--- NOTE | 2019-02-10 00:48 | NUR ---
Discharge instructions verbalized with pt. pt verbalized understanding. labor precautions given. pt dc'd home. will follow up in clinic
[2019-02-10 00:56] VITALS: BP 102/59
--- NOTE | 2019-02-11 09:32 | Physician Query-Final Dx ---
MELINA OJEDA 02/11/19 0932: Clinic Account Progress/Dx Physician Query: Please give diagnosis Please include # weeks gestation Date of Service Feb 09, 2019 at 21:59 JENIFFER MARTINEZ DO 02/11/19 1546: Clinic Account Progress/Dx Physician Query: Please give diagnosis (IUP at 34 weeks 2. Back Pain 3. Pelivic Pain) DIAGNOSIS: Diagnosis IUP at 34 weeks 2. Back Pain 3. Pelivic Pain MELINA OJEDA Feb 11, 2019 09:32 POSSJENIFFER WINN DO Feb 11, 2019 15:46 POS
== END 2019-02-10 00:48 | disposition home or self-care (01) ==
LOC: WSo 21:59 → LDRP 22:09 → WSo 02-10 00:48
PROVIDERS: ATTEND Obstetrics & Gynecology
DX: O26.893 Other specified pregnancy related conditions, third trimester (principal); R10.2 Pelvic and perineal pain; M54.9 Dorsalgia, unspecified; Z3A.34 34 weeks gestation of pregnancy
CPT/HCPCS: 80306; 81000; 87088; 96360; 96372; 99213

== ENCOUNTER 2019-02-18 10:19 | Outpatient (CLI) | payer MEDICAID ==
[~2019-02-18] VITALS: Ht 157.5 cm; Wt 73.6 kg
--- NOTE | 2019-02-18 10:25 | NUR ---
KIKE ROSS presented to unit via from ED, accompanied by FRIEND, with c/o CONTRACTIONS. KIKE ROSS weighed, gowned, voided, and to bed. EFHM and TOCO applied, VS taken. KIKE ROSS oriented to bed controls, call light, TV, heat, and A/C controls.
[2019-02-18 11:13] VITALS: BP 116/70
[2019-02-18] MEDS ORDERED: TERBUTALINE INJ 1 MG/ML (BRETHINE) AMP SC ONE ×2 (11:30→13:15)
[2019-02-18] MEDS: LACTATED RINGERS 1,000 ML IV SCH ×2 (11:56→13:14)
[2019-02-18 13:00] VITALS: BP 124/60
[2019-02-18] MEDS ORDERED: LACTATED RINGERS 1,000 ML IV SCH ×2 (13:15→15:15)
--- NOTE | 2019-02-18 16:05 | NUR ---
dr salazar here. new orders received. cold tray given to patient. IV fluids increased to 999ml/hr to finish 3rd liter.
--- NOTE | 2019-02-18 17:10 | NUR ---
ambulated out of WS to home, with d/c instructions in hand, via private vehicle. no s/s of distress noted.
--- NOTE | 2019-02-19 03:30 | Progress Note ---
Standard Progress Note Progress Notes/Assess & Plan Date Seen by a Provider: Feb 18, 2019 Time Seen by a Provider: 16:30 Progress/Assessment & Plan Ms. Mariano presented to the hospital at 35 3/7 weeks gestation with the onset of contractions. She was given IV fluids and Terbutaline x 2 dose along with Procardia 20 mg x 1 dose. External Monitoring demonstrated small regular contractions. Her Cervix was Closed. She was discharged to home with Instructions, prescription, and a follow up appointment. Final Diagnosis Intrauterine at 35 3/7 weeks 2. Threatened Labor 3. Pelvic Pain JENIFFER MARTINEZ DO Feb 19, 2019 03:30 POS
[2019-03-19] MEDS ORDERED: DOCU100C37 PO (06:56)
[2019-03-19] MEDS ORDERED: OXC5T PO (06:56)
[2019-03-19] MEDS ORDERED: IBUP-1780 PO (06:56)
[2019-03-19] MEDS ORDERED: ACET-93 PO (06:56)
== END 2019-02-18 17:10 | disposition home or self-care (01) ==
LOC: WSo 10:19 → LDRP 10:20 → WSo 17:10
PROVIDERS: ATTEND Obstetrics & Gynecology
DX: O60.03 Preterm labor without delivery, third trimester (principal); Z3A.35 35 weeks gestation of pregnancy
CPT/HCPCS: 96360; 96361; 96372; 99214

== ENCOUNTER 2019-03-15 08:35 | Outpatient (CLI) | payer MEDICAID ==
[~2019-03-15] VITALS: Ht 157 cm; Wt 75.7 kg
[2019-03-15] MEDS ORDERED: ACET-789 PO (08:49)
[2019-03-15 08:52] VITALS: BP 113/67
== END 2019-03-15 09:14 | disposition home or self-care (01) ==
LOC: PREOP 08:35
PROVIDERS: ATTEND Obstetrics & Gynecology
DX: Z01.818 Encounter for other preprocedural examination (principal)
CPT/HCPCS: 87081

== ENCOUNTER 2019-03-18 05:55 | Inpatient (IN) | payer MEDICAID ==
[~2019-03-18] VITALS: Ht 157.5 cm; Wt 76.2 kg
[2019-03-18] VITALS (8 sets, daily range): BP systolic 92–125; BP diastolic 50–74
[~2019-03-18 05:55] MED LIST changes: +ACET-789 PO
--- NOTE | 2019-03-18 06:00 | NUR ---
KIKE ROSS presented to unit via ambulatory from ED, accompanied by friend, with c/o . KIKE ROSS weighed, gowned, voided, and to bed. EFHM and TOCO applied, VS taken. KIKE ROSS oriented to bed controls, call light, TV, heat, and A/C controls.
[2019-03-18] MEDS ORDERED: LACTATED RINGERS 1,000 ML IV PRN ×2 (06:06)
[2019-03-18] MEDS ORDERED: FAMOTIDINE 20MG/2ML IV (PEPCID) IV ONE (06:15)
[2019-03-18] MEDS ORDERED: CATHETER FLUSH 10 ML SYR IV PRN (06:15)
[2019-03-18] MEDS ORDERED: METOCLOPRAMIDE INJ 10 MG/2 ML (REGLAN) IV ONE (06:15)
[2019-03-18] MEDS ORDERED: CITRIC ACID/SOB CIT (BICITRA) 30 ML UDC PO ONE (06:15)
[2019-03-18 06:28] LABS: BASOPHILS % (AUTO) 0 % (0-10); EOSINOPHILS # (AUTO) 0.1 10^3/uL (0.0-0.3); EOSINOPHILS % (AUTO) 1 % (0-10); HEMATOCRIT 35 % (35-52); LYMPHOCYTES # (AUTO) 2.2 X 10^3 (1.0-4.0); LYMPHOCYTES % (AUTO) 25 % (12-44); MEAN CORPUSCULAR HEMOGLOBIN 32 PG (25-34); MEAN CORPUSCULAR HGB CONC 35 G/DL (32-36); MEAN CORPUSCULAR VOLUME 92 FL (80-99); MEAN PLATELET VOLUME 10.3 FL (7.4-10.4); MONOCYTES # (AUTO) 0.8 X 10^3 (0.0-1.0); MONOCYTES % (AUTO) 9 % (0-12); NEUTROPHILS # (AUTO) 5.7 X 10^3 (1.8-7.8); NEUTROPHILS % (AUTO) 65 % (42-75); PLATELET COUNT 264 10^3/uL (130-400); RED CELL DISTRIBUTION WIDTH 12.4 % (10.0-14.5); WHITE BLOOD COUNT 8.8 10^3/uL (4.3-11.0)
--- NOTE | 2019-03-18 06:39 | History & Physical-OB/GYN ---
History of Present Illness History of Present Illness Reason for visit/HPI Ms. Mariano A0, presents to the hospital for scheduled repeat at 39 weeks. She denies any other concerns today. Date of Admission Mar 18, 2019 at 05:55 Date Seen by a Provider: Mar 18, 2019 Time Seen by a Provider: 06:30 I consulted on this patient on 03/18/19 06:33 Attending Physician Ger Hutchinson DO Admitting Physician Ger Hutchinson DO Consult Allergies and Home Medications Allergies Coded Allergies: cefazolin (Verified Allergy, Severe, Anaphylaxis, 03/15/19) Home Medications Acetaminophen with Codeine 1 Each Tablet, 1 EACH PO PRN, (Reported) Cyclobenzaprine HCl 10 Mg Tablet, 10 MG PO BID, (Reported) Vit No.124/Iron/FA 1 Each Tablet, 1 EACH PO DAILY, (Reported) Patient Home Medication List Home Medication List Reviewed: Yes Past Blmrfen-Mmfgbp-Fossqq Hx Patient Social History Marrital Status: single Number of Children: 3 Number of living children: 3 Employed/Student: employed Alcohol Use: Denies Use Recreational Drug Use: No Drug of Choice: hx Smoking Status: Current Everyday Smoker Type Used: Cigarettes 2nd Hand Smoke Exposure: Yes Physical Abuse Screen: No Sexual Abuse: No Recent Foreign Travel: No Contact w/other who traveled: No Recent Hopitalizations: Yes (PRE-TERM LABOR) Seasonal Allergies Seasonal Allergies: Yes Surgeries Yes (RIGHT KNEE, PYLORIC STENOSIS REPAIR INFANT, ) Section, Gallbladder, Orthopedic Respiratory No Cardiovascular No Neurological No Reproductive System Expected Date of Delivery: Feb 20, 2020 Hx Reproductive Disorders: Yes (history of labor) Sexually Transmitted Disease: No HIV/AIDS: No Female Reproductive Disorders: Denies Genitourinary No Gastrointestinal Yes (DURING ) Gastroesophageal Reflux, Chronic Constipation Musculoskeletal Yes Chronic Back Pain Endocrine History of Endocrine Disorders: No HEENT History of HEENT Disorders: Yes (GLASSES) Loss of Vision: Denies Hearing Impairment: Deaf Cancer No Psychosocial History of Psychiatric Problem: No Integumentary History of Skin or Integumenta: No Blood Transfusions History of Blood Disorders: No Adverse Reaction to a Blood Tr: No (N/A) Review of Systems Constitutional: see HPI Physical Exam Physical Exam Vital Signs Capillary Refill : Labs Laboratory Tests 03/18/19 06:15: White Blood Count 8.8, Red Blood Count 3.74L, Hemoglobin 12.0, Hematocrit 35, Mean Corpuscular Volume 92, Mean Corpuscular Hemoglobin 32, Mean Corpuscular Hemoglobin Concent 35, Red Cell Distribution Width 12.4, Platelet Count 264, Mean Platelet Volume 10.3, Neutrophils (%) (Auto) 65, Lymphocytes (%) (Auto) 25, Monocytes (%) (Auto) 9, Eosinophils (%) (Auto) 1, Basophils (%) (Auto) 0, Neutrophils # (Auto) 5.7, Lymphocytes # (Auto) 2.2, Monocytes # (Auto) 0.8, Eosinophils # (Auto) 0.1, Basophils # (Auto) 0.0 General Appearance: No Apparent Distress, WD/WN Respiratory: Chest Non Tender, Lungs Clear, Normal Breath Sounds, No Accessory Muscle Use Cardiovascular: Regular Rate, Rhythm, No Edema Abdominal: normal bowel sounds Pelvic Exam: normal external exam Extremity: Normal Inspection, Non Tender, No Calf Tenderness Assessment/Plan Assessment and Plan Intrauterine at 39 weeks 2. Previous Plan: Proceed with an immediate . Procedure and its associated risks were reviewed. All questions were answered. Admission Diagnosis Admission Status: Inpatient Order (span 2 midnights) Reason for Inpatient Admission: Repeat Clinical Quality Measures DVT/VTE Risk/Contraindication: Risk Factor Score Per Nursin RFS Level Per Nursing on Admit: 1=Low/No VTE PPX GER HUTCHINSON DO Mar 18, 2019 06:39
[2019-03-18] MEDS ORDERED: CLINDAMYCIN 900 MG/50 ML IVPB 50 ML IV ONE (06:42)
[2019-03-18] MEDS ORDERED: fentaNYL INJECTION 100 MCG/2 ML AMP ONE (06:57)
[2019-03-18] MEDS ORDERED: OXYTOCIN/NORMAL SALINE 1,000 ML IV ONE (07:09)
[2019-03-18] MEDS ORDERED: PHENYLEPHRINE 100 MCG/ML 10 ML (ANESTHESIA) SYR ONE (07:28)
[2019-03-18] MEDS ORDERED: OXYTOCIN/NORMAL SALINE 500 ML IV SCH (08:23)
[2019-03-18] MEDS ORDERED: fentaNYL INJECTION 100 MCG/2 ML AMP IVP PRN (08:30)
[2019-03-18] MEDS ORDERED: ONDANSETRON 4 MG/2 ML (SDV) Z0FRAN IVP PRN (08:30)
[2019-03-18] MEDS ORDERED: MEASLES,MUMPS,RUBELLA 1 EA INJ SC SCH (08:30)
[2019-03-18] MEDS ORDERED: TETANUS,DIPTH,PERTUSS P/F (BOOSTRIX) 0.5 ML VIAL IM SCH (08:30)
--- NOTE | 2019-03-18 08:36 | Cesarean Section Operative ---
Procedure Procedure Note Pre-operative Diagnosis: Debora Mariano is berenice (28 /Para / , Gestational Age (wks)39 with [] Post-operative Diagnosis: same [] Procedure: [Repeat] low transverse section Physician: JENIFFER MARTINEZ Human Resources Analyst: [None] Estimated blood loss: [700] mL Disposition: [] Findings: Viable [Male] , Apgars [], weight [6 lb 14 oz], intact placenta, 3vc, thin lower uterine segment noticed at incision of uterus, tubes, and ovaries. Indications:Debora ng (28 /Para / ,Gestational Age (wks) 39 presenting for [Repeat ]. Procedure Details: The patient was seen in pre-op and the procedure was discussed with the patient in full, including the risks, benefits, and alternatives. All questions were answered. The patient was taken to the operating room and a time out was performed, verifying patient and procedure. After spinal anesthesia was placed by our anesthesia colleagues, the patient was placed in the dorsal supine with leftward tilt for uterine displacement.~ Her abdomen was then prepped and draped in the typical sterile fashion. An elliptical skin incision was made over her previous skin scar using a scalpel (the previous incision was removed) and carried down through the underlying fascia. The fascia was incised in the midline and tented up using Aaron clamps. On both the inferior and superior fascia side the rectus muscle was dissected off bluntly and sharply using Tarango scissors. The peritoneum was identified and entered bluntly in the midline. This was then stretched laterally using manual strength. After entering the abdominal cavity and confirming lack of intraperitoneal adhesions, a large Jose Miguel retractor was placed and the lower uterine segment was visualized. A bladder flap was created with the use of Metzenbaum scissors.~ A scalpel was utilized to make a low transverse uterine incision. Amniotomy was performed with an Allis clamp with return of clear fluid. The infant's head was grasped and brought to the level of the incision. Nuchal cord x 2 was manually reduced. Fundal pressure was applied and was delivered without difficulty. Mouth and nares were suctioned with bulb suction. After the umbilical cord was clamped and cut, the was handed off to the pediatric staff. A sample of cord blood was then obtained. The placenta was delivered intact via uterine massage. The uterus was exteriorized and cleared of all clots and debris. The uterine incision was closed using 0 Vicryl in a running locked fashion. A second imbricated layer was placed using 0 Vicryl in a running fashion as well. The uterus was flexed forward and the posterior rectouterine space was inspected and cleared of all clots and debris. Again the hysterotomy site was examined and hemostasis was observed. The bilateral tubes and ovaries appeared normal. The uterus was placed back into the abdominal cavity and abdominal gutters were cleared of all clots and debris. A final check of the uterine incision showed it to be hemostatic. The peritoneum was closed using 3-0 Vicryl in a running fashion. The fascia was closed with 0 Vicryl in a running fashion. The subcutaneous space was hemostatic, and irrigated, approximated with 3-0 Plain Gut. The skin was then closed using 4-0 Monocryl in a running subcuticular fashion. The skin edges were reapproximated together and were hemostatic. A pressure dressing was applied. All sponge, lap and needle counts were correct at the end of the procedure per nursing. Vitals - Labs Vital Signs - I&O Vital Signs Date Time Temp Pulse Resp B/P (MAP) Pulse Ox O2 Delivery O2 Flow Rate FiO2 03/18/19 06:35 36.7 88 18 99 Room Air Labs Laboratory Tests 03/18/19 06:15: White Blood Count 8.8, Red Blood Count 3.74L, Hemoglobin 12.0, Hematocrit 35, Mean Corpuscular Volume 92, Mean Corpuscular Hemoglobin 32, Mean Corpuscular Hemoglobin Concent 35, Red Cell Distribution Width 12.4, Platelet Count 264, Mean Platelet Volume 10.3, Neutrophils (%) (Auto) 65, Lymphocytes (%) (Auto) 25, Monocytes (%) (Auto) 9, Eosinophils (%) (Auto) 1, Basophils (%) (Auto) 0, Neutrophils # (Auto) 5.7, Lymphocytes # (Auto) 2.2, Monocytes # (Auto) 0.8, Eosinophils # (Auto) 0.1, Basophils # (Auto) 0.0 JENIFFER MARTINEZ DO Mar 18, 2019 08:36
[2019-03-18] MEDS ORDERED: BUPIVACAINE 0.5% 30 ML (SENSORCAINE) VIAL ONE (08:59)
[2019-03-18] MEDS: DOCUSATE SODIUM 100 MG (COLACE) CAP PO SCH ×2 (09:34→21:10)
[2019-03-18] MEDS: KETOROLAC 30 MG/ML VIAL IV SCH ×3 (09:35→21:10)
--- NOTE | 2019-03-18 09:40 | NUR ---
VISITORS TO PT'S BEDSIDE.
--- NOTE | 2019-03-18 10:05 | NUR ---
PERICARE PERFORMED WITH PAD CHANGE. VAG FLOW LT/MOD FF U/1. TURNS WELL WITH ASSISTANCE. FAMILY AT BEDSIDE.
[2019-03-18] MEDS: METOCLOPRAMIDE 10 MG (REGLAN) TAB PO SCH ×2 (12:36→18:40)
[2019-03-18] MEDS: ACETAMINOPHEN 500 MG TAB (TYLENOL) PO SCH ×2 (12:37→18:40)
--- NOTE | 2019-03-18 12:54 | NUR ---
PT UP TO W/C WITH STAND BY ASSIST AND TO NURSERY TO SEE INFANT.
[2019-03-18] MEDS ORDERED: CATHETER FLUSH 10 ML SYR IV SCH (14:00)
[2019-03-18] MEDS ORDERED: NS IV 1000 ML 1,000 ML ONE ×2 (14:06→21:10)
--- NOTE | 2019-03-18 18:40 | NUR ---
PT IN THE NURSERY, HOLDING , MEDS GIVEN PO; SEE EMAR FOR FURTHER. BENITEZ EMPTIED. PT DENIES ANY NEEDS AT THIS TIME.
--- NOTE | 2019-03-18 19:15 | NUR ---
ASSISTED PT BACK TO ROOM FROM NURSERY. TOLERATED WELL. NO NEEDS AT THIS TIME. FAMILY AT BEDSIDE
--- NOTE | 2019-03-18 20:30 | NUR ---
PT BACK TO NURSERY TO SEE
[2019-03-18] MEDS ORDERED: ZOLPIDEM 5 MG (AMBIEN) TAB PO SCH (21:00)
--- NOTE | 2019-03-18 21:05 | NUR ---
ASSISTED PT BACK TO ROOM FROM NURSERY. VS, ASSESSMENTS DONE. PAIN MEDS GIVEN. PT WANTING TO REST AND WILL GO BACK TO NURSERY FOR INFANT FEEDINGS.
[2019-03-18] MEDS ORDERED: NS IV 1000 ML 1,000 ML IV SCH (21:30)
--- NOTE | 2019-03-19 | NUR ---
TO NURSERY FOR FEEDING
[2019-03-19] MEDS: ACETAMINOPHEN 500 MG TAB (TYLENOL) PO SCH ×3 (00:44→14:12)
[2019-03-19 00:45] VITALS: BP 104/65
[2019-03-19] MEDS: METOCLOPRAMIDE 10 MG (REGLAN) TAB PO SCH (00:45)
--- NOTE | 2019-03-19 01:15 | NUR ---
PT BACK TO ROOM. HIEU PADS CHANGED. SMALL AMOUNT OF BLEEDING NOTED. TO BED. SCD'S ON. NO NEEDS AT THIS TIME.
[2019-03-19 04:00] VITALS: BP 107/76
[2019-03-19] MEDS ORDERED: BISACODYL 10 MG SUPP (DULCOLAX) PR ONE (05:00)
[2019-03-19] MEDS ORDERED: MILK OF MAGNESIA 400 MG/5 ML 30 ML UDC PO ONE (05:00)
[2019-03-19] MEDS: KETOROLAC 30 MG/ML VIAL IV SCH (05:01)
--- NOTE | 2019-03-19 05:15 | NUR ---
BENITEZ REMOVED, IVF STOPPED. MEDS GIVEN. ASSISTED PT TO BATHROOM.
--- NOTE | 2019-03-19 05:20 | NUR ---
TO NURSERY TO FEED .
[2019-03-19 06:01] LABS: BASOPHILS % (AUTO) 0 % (0-10); EOSINOPHILS # (AUTO) 0.1 10^3/uL (0.0-0.3); EOSINOPHILS % (AUTO) 1 % (0-10); HEMATOCRIT 31 % (35-52); HEMOGLOBIN 10.4 G/DL (11.5-16.0); LYMPHOCYTES # (AUTO) 2.2 X 10^3 (1.0-4.0); LYMPHOCYTES % (AUTO) 20 % (12-44); MEAN CORPUSCULAR HEMOGLOBIN 32 PG (25-34); MEAN CORPUSCULAR HGB CONC 34 G/DL (32-36); MEAN CORPUSCULAR VOLUME 94 FL (80-99); MEAN PLATELET VOLUME 10.9 FL (7.4-10.4); MONOCYTES # (AUTO) 0.9 X 10^3 (0.0-1.0); MONOCYTES % (AUTO) 8 % (0-12); NEUTROPHILS # (AUTO) 7.7 X 10^3 (1.8-7.8); NEUTROPHILS % (AUTO) 71 % (42-75); PLATELET COUNT 219 10^3/uL (130-400); RED CELL DISTRIBUTION WIDTH 12.4 % (10.0-14.5); WHITE BLOOD COUNT 10.9 10^3/uL (4.3-11.0)
--- NOTE | 2019-03-19 06:30 | NUR ---
DR MARTINEZ HERE TO SEE PT. DRESSING REMOVED. INSTRUCTIONS GIVEN. PT VERBALIZED UNDERSTANDING.
--- NOTE | 2019-03-19 06:52 | Discharge Summary ---
Diagnosis/Chief Complaint Date of Admission Mar 18, 2019 at 05:55 Date of Discharge March 19, 2019 Discharge Date: Mar 19, 2019 Discharge Time: 09:30 Admission Diagnosis Admission Diagnosis Intrauterine at 39 weeks 2. Previous Discharge Diagnosis Intrauterine at 39 weeks--delivered via 2. Previous C- Section Reason Hospital Visit Ms. Mariano A0, presents to the hospital for scheduled repeat at 39 weeks. She denies any other concerns today. Discharge Summary Hospital Course Hospital Course Ms. Mariano was admitted to the hospital at 39 weeks gestation for a Repeat C- Section. The surgery was performed without complications. On her day of surgery, she was placed on IV and oral pain medications and other comfort measures. Her day of surgery course was unremarkable. Postoperative Day #1 found Ms. Mariano ambulating, moving her bowels, voiding freely, tolerating a Regular Diet and controlling her pain with oral medications. She is without complaint. Her vital signs remained stable throughout her hospitalization. She will be discharged to home with instructions, prescriptions and a follow up appointment. Labs Laboratory Tests 03/18/19 06:15: Red Blood Count 3.74L 03/19/19 05:18: Red Blood Count 3.29L, Hemoglobin 10.4L, Hematocrit 31L, Mean Platelet Volume 10.9H Procedures Repeat . Discharge Physical Examination Allergies: Coded Allergies: cefazolin (Verified Allergy, Severe, Anaphylaxis, 03/15/19) Vitals & I&Os Vital Signs Date Time Temp Pulse Resp B/P (MAP) Pulse Ox O2 Delivery O2 Flow Rate FiO2 03/19/19 04:00 36.1 78 18 107/76 (86) 03/18/19 16:27 97 Room Air General Appearance: Alert, Oriented X3, Cooperative HEENT: Atraumatic, PERRLA Respiratory: Clear to Auscultation, Normal Air Movement Cardiovascular: Regular Rate, No Murmurs Abdominal: Normal Bowel Sounds, Soft Extremities: No Clubbing, No Cyanosis Skin: No Rashes Neuro: Normal Gait, Normal Speech Psych/Mental Status: Mental Status NL Discharge Home Medications Reviewed and agree with Discharge Medication list on patient's Discharge Instruction sheet Instructions to Patient/Family Please see electronic discharge instructions given to patient. Clinical Quality Measures DVT/VTE Risk/Contraindication: Risk Factor Score Per Nursin RFS Level Per Nursing on Admit: 1=Low/No VTE PPX JENIFFER MARTINEZ DO Mar 19, 2019 06:52
[2019-03-19] MEDS ORDERED: DOCU100C37 PO (06:56)
[2019-03-19] MEDS ORDERED: OXC5T PO (06:56)
[2019-03-19] MEDS ORDERED: IBUP-1780 PO (06:56)
[2019-03-19] MEDS ORDERED: ACET-93 PO (06:56)
[2019-03-19 07:30] VITALS: BP 108/67
[2019-03-19] MEDS: DOCUSATE SODIUM 100 MG (COLACE) CAP PO SCH (07:44)
--- NOTE | 2019-03-19 10:33 | Anesthesia-Regional Post-Op ---
Regional Patient Condition Mental Status: Alert, Oriented x3 Circulation: Same as Pre-Op Headache: Absent Sensation: Full Recovery Motor Block: Absent Post Op Complications Complications None Follow Up Care/Instructions Patient Instructions None needed. Anesthesia/Patient Condition Patient is doing well, no complaints, stable vital signs, no apparent adverse anesthesia problems. No complications reported per nursing. MIGEL AHUMADA CRNA Mar 19, 2019 10:33
[2019-03-19] MEDS ORDERED: IBUPROFEN 800 MG (MOTRIN) TAB PO SCH (14:30)
[2019-03-19 18:14] VITALS: BP 114/71
--- NOTE | 2019-03-19 18:21 | NUR ---
instructions given. Pt verbalized understanding. Mom to be a boarder due to infant's continued stay.
== END 2019-03-19 18:20 | disposition home or self-care (01) | DRG 788 ==
LOC: LDRP 05:55
PROVIDERS: ADMIT Obstetrics & Gynecology; ATTEND Obstetrics & Gynecology
PROC: 10D00Z1 Extraction of Products of Conception, Low, Open Approach (ICD-10-PCS; principal; 2019-03-18 07:22)
DX: O34.211 Maternal care for low transverse scar from previous cesarean delivery (principal); Z37.0 Single live birth; Z3A.39 39 weeks gestation of pregnancy; F17.210 Nicotine dependence, cigarettes, uncomplicated; O99.62 Diseases of the digestive system complicating childbirth; O75.89 Other specified complications of labor and delivery; M54.9 Dorsalgia, unspecified; G89.29 Other chronic pain; Z23 Encounter for immunization; O99.334 Smoking (tobacco) complicating childbirth; O69.81X0 Labor and delivery complicated by cord around neck, without compression, not applicable or unspecified
CPT/HCPCS: 36415; 85025; 86850; 86900; 86901; 90707; 94664

== ENCOUNTER → 2020-05-04 | Outpatient (CLI) | payer BC, MEDICAID ==
[~2020-05-04] MED LIST changes: +DOCU100C37 PO; +IBUP-1780 PO; +OXC5T PO
--- NOTE | 2020-05-04 12:58 | Diagnostic Imaging Report ---
EXAMINATION: Abdomen at 12:13 p.m. INDICATION: Back pain. Two supine views were obtained. There are no prior studies available for comparison. There is gas in both the large and small bowel in a nonspecific fashion. There is no evidence for bowel obstruction. There is at least moderate amount of fecal material throughout the colon. There is no mass, organomegaly or pathological calcifications evident. Surgical clips are seen overlying the right upper quadrant consistent with a prior cholecystectomy. The osseous structures are intact. IMPRESSION: 1. The bowel gas pattern is nonspecific. There is no acute abnormality identified. 2. There is at least a moderate amount of fecal material throughout the colon. Dictated by: Dictated on workstation # [id number]
== END ==
LOC: RAD FS 12:07
PROVIDERS: ATTEND Nurse Practitioner Family
DX: M54.5 Low back pain (principal); R10.31 Right lower quadrant pain
CPT/HCPCS: 74018

== ENCOUNTER → 2020-07-20 | Outpatient (CLI) | payer BC ==
--- NOTE | 2020-07-20 13:25 | Diagnostic Imaging Report ---
Right knee at 1:18. Indication: Knee pain 3 views were obtained. There are no prior studies available for comparison. There is no fracture, dislocation or acute bony abnormality evident. The knee joint is fairly well maintained. The soft tissues are unremarkable. Impression: There is no evidence for an acute bony abnormality. Dictated by: Dictated on workstation # [id number]
== END ==
LOC: RAD FS 13:01
PROVIDERS: ATTEND Nurse Practitioner
DX: M25.561 Pain in right knee (principal)
CPT/HCPCS: 73562

== ENCOUNTER → 2021-01-15 | Outpatient (CLI) | payer BC ==
--- NOTE | 2021-01-15 13:37 | Diagnostic Imaging Report ---
INDICATION: 30-year-old female, abnormal uterine bleeding. TECHNIQUE: Multiple real time novoa scale sonographic images were obtained of the pelvis transabdominally. CORRELATION STUDY: None FINDINGS: UTERUS: Approximately 11 x 3.8 cm. ENDOMETRIUM: 9 mm. The uterus and endometrium appearing unremarkable. RIGHT OVARY: 3.3 x 2.2 x 3.0 cm LEFT OVARY: 3.0 x 1.8 x 3.2 cm The ovaries contain multiple small cysts and/or follicles, likely physiologic. No concerning mass. Blood flow is present to the ovaries. No significant free pelvic fluid. IMPRESSION: 1. Unremarkable appearing transabdominal pelvic ultrasound examination. Dictated by: Dictated on workstation # [id number]
== END ==
LOC: RAD 12:00
PROVIDERS: ATTEND Obstetrics & Gynecology
DX: N93.9 Abnormal uterine and vaginal bleeding, unspecified (principal)
CPT/HCPCS: 76856

== ENCOUNTER 2021-02-13 11:10 | Emergency (ER) | payer BC ==
[~2021-02-13] VITALS: Ht 157.5 cm; Wt 69.4 kg
[~2021-02-13 11:10] MED LIST changes: +CYCL10TA25 PO; -CYCL10TA9 PO
[2021-02-13 11:20] VITALS: BP 127/60
--- NOTE | 2021-02-13 11:23 | ED GU-Female ---
General Chief Complaint: OB < 20 WEEKS Stated Complaint: VAGINAL BLEEDING DURING PREG History of Present Illness Date Seen by Provider: Feb 13, 2021 Time Seen by Provider: 11:18 Initial Comments 30-year-old female presents for repeat quantitative hCG. Patient was diagnosed with a with a 2138 hCG on 02/10/2021. Patient started having some vaginal bleeding 2 days ago with some abnormal "tissue" patient came in today to have a repeat of her hCG to see if is going down her up to see if she is po ssibly having a miscarriage. Patient did have a negative ultrasound on 01/15/2021. Patient with some mild lower abdominal cramping but no other systemic complaints. Allergies and Home Medications Allergies Coded Allergies: cefazolin (Verified Allergy, Severe, Anaphylaxis, 03/15/19) Patient Home Medication List Home Medication List Reviewed: Yes Acetaminophen (Acetaminophen) 500 Mg Tablet, 1,000 MG PO Q6HR Prescribed by: JENIFFER MARTINEZ on 03/19/19 0656 Docusate Sodium (Docusate Sodium) 100 Mg Capsule, 100 MG PO BID Prescribed by: JENIFFER MARTINEZ on 03/19/19 0656 Ibuprofen (Ibuprofen) 800 Mg Tablet, 800 MG PO Q8H Prescribed by: JENIFFER MARTINEZ on 03/19/19 0656 Oxycodone Hcl (Oxycodone IR) 5 Mg Tab, 5 MG PO Q4HR PRN for To achieve TAG Prescribed by: JENIFFER MARTINEZ on 03/19/19 0656 Vit No.124/Iron/FA ( Vitamin Tablet) 1 Each Tablet, 1 EACH PO DAILY, (Reported) Entered as Reported by: ANDREA JAIN on 10/25/18 8590 Review of Systems Review of Systems Constitutional: No chills, No fever EENTM: no symptoms reported Respiratory: no symptoms reported Cardiovascular: no symptoms reported Gastrointestinal: see HPI Genitourinary: see HPI Musculoskeletal: no symptoms reported Skin: no symptoms reported Psychiatric/Neurological: No Symptoms Reported Endocrine: No Symptoms Reported Past Nyngnzd-Kyjnzx-Dxhogm Hx Seasonal Allergies Seasonal Allergies: Yes Past Medical History Surgeries: Yes (RIGHT KNEE, PYLORIC STENOSIS REPAIR , ) Section, Gallbladder, Orthopedic Respiratory: No Cardiac: No Neurological: No Reproductive Disorders: Yes (history of labor) Female Reproductive Disorders: Denies Sexually Transmitted Disease: No HIV/AIDS: No Genitourinary: No Gastrointestinal: Yes (DURING ) Gastroesophageal Reflux, Chronic Constipation Musculoskeletal: Yes Chronic Back Pain Endocrine: No HEENT: Yes (GLASSES) Loss of Vision: Denies Hearing Impairment: Deaf Cancer: No Psychosocial: No Integumentary: No Blood Disorders: No Adverse Reaction/Blood Tranf: No (N/A) Physical Exam Vital Signs Vital Signs - First Documented 02/13/21 11:20 Temp 36.5 Pulse 89 Resp 18 B/P (MAP) 127/60 (82) Pulse Ox 99 O2 Delivery Room Air Capillary Refill : Height, Weight, BMI Height: 5'2.00" Weight: 142lbs. 0.0oz. 64.107056ec; 30.71 BMI Method:Stated General Appearance: WD/WN, no apparent distress Neck: non-tender, full range of motion Cardiovascular: normal peripheral pulses, regular rate, rhythm Respiratory: lungs clear, normal breath sounds Gastrointestinal: soft, tenderness (More of a crampiness versus tenderness lower abdomen) Pelvic: other (defferred ) Extremities: normal range of motion, non-tender Neurologic/Psychiatric: alert, normal mood/affect, oriented x 3 Skin: warm/dry Progress/Results/Core Measures Suspected Sepsis SIRS Temperature: Pulse: Respiratory Rate: Blood Pressure / Mean: Results/Orders Lab Results Laboratory Tests Test 02/13/21 11:35 Range/Units Human Chorionic Gonadotropin, Quant 1263 H <5 MIU/ML My Orders Orders - EUGENIO TYLER DO Hcg,Quantitative (02/13/21 11:24) Vital Signs/I&O 02/13/21 11:20 Temp 36.5 Pulse 89 Resp 18 B/P (MAP) 127/60 (82) Pulse Ox 99 O2 Delivery Room Air Capillary Refill : Progress Note : Progress Note Patient's hCG went from 6196-0118 which is indicated of a likely miscarriage. I will have her follow-up with her primary care provider in approximately 5 to 7 days for recheck of her labs and symptoms. Patient stable and discharged Departure Impression Primary Impression: Threatened miscarriage in early Disposition: 01 HOME, SELF-CARE Condition: Stable Departure-Patient Inst. Referrals: [facility] (PCP) Primary Care Physician ARTIS RAYMUNDO MD (Family) Primary Care Physician Patient Instructions: Threatened Miscarriage, Bleeding In Early Add. Discharge Instructions: Follow-up with your OB or primary care provider in approximately 5 to 7 days for recheck of your labs and recheck of your symptoms sooner if needed All discharge instructions reviewed with patient and/or family. Voiced understjosue conklin. EUGENIO TYLER DO Feb 13, 2021 11:23
== END 2021-02-13 12:14 | disposition home or self-care (01) ==
LOC: EDUNIT# 11:10 → ER FS 11:12
DX: O20.0 Threatened abortion (principal); G89.29 Other chronic pain; M54.9 Dorsalgia, unspecified; Z3A.00 Weeks of gestation of pregnancy not specified; Z79.891 Long term (current) use of opiate analgesic
CPT/HCPCS: 36415; 84702

== ENCOUNTER 2021-08-25 13:14 | Emergency (ER) | payer BC, MEDICAID ==
[~2021-08-25] VITALS: Ht 157 cm; Wt 67.0 kg
--- NOTE | 2021-08-25 13:29 | ED General ---
General Chief Complaint: General Problems/Pain Stated Complaint: SUPRAPUBIC PRESSURE; BLURRY VISION; TREMORS History of Present Illness Date Seen by Provider: Aug 25, 2021 Time Seen by Provider: 13:29 Initial Comments 30-year-old female who is 24 weeks , [id number], is here with complaints of feeling lightheaded all morning. Patient was working from home at a computer and she felt as though she cannot concentrate and the lettering on the computer screen appeared fuzzy to her. Patient states she drinks half a gallon to 1 full gallon of water every day along with Gatorade bottles, and patient states she has been eating well. She had oatmeal and a banana for breakfast today. Denies headache, fever, chest pain, shortness of breath, cough, recent illness, sore throat, abdominal pain, diarrhea, constipation, dysuria. Allergies and Home Medications Allergies Coded Allergies: cefazolin (Verified Allergy, Severe, Anaphylaxis, 03/15/19) Patient Home Medication List Home Medication List Reviewed: Yes Acetaminophen (Acetaminophen) 500 Mg Tablet, 1,000 MG PO Q6HR Prescribed by: JENIFFER MARTINEZ on 03/19/19 0656 Docusate Sodium (Docusate Sodium) 100 Mg Capsule, 100 MG PO BID Prescribed by: JENIFFER MARTINEZ on 03/19/19 0656 Ibuprofen (Ibuprofen) 800 Mg Tablet, 800 MG PO Q8H Prescribed by: JENIFFER MARTINEZ on 03/19/19 0656 Oxycodone Hcl (Oxycodone IR) 5 Mg Tab, 5 MG PO Q4HR PRN for To achieve TAG Prescribed by: JENIFFER MARTINEZ on 03/19/19 0656 Vit No.124/Iron/FA ( Vitamin Tablet) 1 Each Tablet, 1 EACH PO DAILY, (Reported) Entered as Reported by: ANDREA JAIN on 10/25/18 7011 Review of Systems Review of Systems Constitutional: dizziness EENTM: no symptoms reported Respiratory: no symptoms reported Cardiovascular: no symptoms reported Gastrointestinal: no symptoms reported Genitourinary: no symptoms reported Musculoskeletal: no symptoms reported Skin: no symptoms reported Psychiatric/Neurological: No Symptoms Reported Hematologic/Lymphatic: No Symptoms Reported Immunological/Allergic: no symptoms reported Past Jopvtky-Suqgng-Yrixug Hx Immunizations Up To Date First/Initial COVID19 Vaccinat: Not Currently Vaccinated Seasonal Allergies Seasonal Allergies: Yes Past Medical History Surgery/Hospitalization HX: C-Sections; GB; Pyloric Stenosis Surgeries: Yes (RIGHT KNEE, PYLORIC STENOSIS REPAIR , ) Section, Gallbladder, Orthopedic Respiratory: No Cardiac: No Neurological: No Reproductive Disorders: Yes (history of labor) Female Reproductive Disorders: Denies Sexually Transmitted Disease: No HIV/AIDS: No Genitourinary: No Gastrointestinal: Yes (DURING ) Gastroesophageal Reflux, Chronic Constipation Musculoskeletal: Yes Chronic Back Pain Endocrine: No HEENT: Yes (GLASSES) Loss of Vision: Denies Hearing Impairment: Deaf Cancer: No Psychosocial: No Integumentary: No Blood Disorders: No Adverse Reaction/Blood Tranf: No (N/A) Physical Exam Vital Signs Vital Signs - First Documented 08/25/21 13:34 Temp 36.5 Pulse 74 Resp 16 B/P (MAP) 126/63 (84) Pulse Ox 100 O2 Delivery Room Air Capillary Refill : Height, Weight, BMI Height: 5'2.00" Weight: 142lbs. 0.0oz. 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 Norm as Tested Skin: Normal Color Progress/Results/Core Measures Suspected Sepsis SIRS Temperature: Pulse: Respiratory Rate: Laboratory Tests 08/25/21 14:04: White Blood Count 11.1H Blood Pressure / Mean: Laboratory Tests 08/25/21 14:04: Creatinine 0.47L, Platelet Count 168, Total Bilirubin 0.2 Results/Orders Lab Results Laboratory Tests Test 08/25/21 13:27 08/25/21 13:47 08/25/21 14:04 Range/Units Urine Color YELLOW Urine Clarity CLEAR Urine pH 7.0 5-9 Urine Specific Bertram <=1.005 1.016-1.022 Urine Protein NEGATIVE NEGATIVE Urine Glucose (UA) NEGATIVE NEGATIVE Urine Ketones NEGATIVE NEGATIVE Urine Nitrite NEGATIVE NEGATIVE Urine Bilirubin NEGATIVE NEGATIVE Urine Urobilinogen 0.2 < = 1.0 MG/DL Urine Leukocyte Esterase NEGATIVE NEGATIVE Urine RBC (Auto) NEGATIVE NEGATIVE Urine RBC NONE /HPF Urine WBC NONE /HPF Urine Squamous Epithelial Cells RARE /HPF Urine Crystals NONE /LPF Urine Bacteria NEGATIVE /HPF Urine Casts NONE /LPF Urine Mucus NEGATIVE /LPF Urine Culture Indicated NO Urine Opiates Screen NEGATIVE NEGATIVE Urine Oxycodone Screen NEGATIVE NEGATIVE Urine Methadone Screen NEGATIVE NEGATIVE Urine Propoxyphene Screen NEGATIVE NEGATIVE Urine Barbiturates Screen NEGATIVE NEGATIVE Ur Tricyclic Antidepressants Screen NEGATIVE NEGATIVE Urine Phencyclidine Screen NEGATIVE NEGATIVE Urine Amphetamines Screen NEGATIVE NEGATIVE Urine Methamphetamines Screen NEGATIVE NEGATIVE Urine Benzodiazepines Screen NEGATIVE NEGATIVE Urine Cocaine Screen NEGATIVE NEGATIVE Urine Cannabinoids Screen NEGATIVE NEGATIVE SARS-CoV-2 RNA (RT-PCR) Not Detected Not Detecte White Blood Count 11.1 H 4.3-11.0 10^3/uL Red Blood Count 3.80 3.80-5.11 10^6/uL Hemoglobin 12.1 11.5-16.0 g/dL Hematocrit 35 35-52 % Mean Corpuscular Volume 91 80-99 fL Mean Corpuscular Hemoglobin 32 25-34 pg Mean Corpuscular Hemoglobin Concent 35 32-36 g/dL Red Cell Distribution Width 12.5 10.0-14.5 % Platelet Count 168 130-400 10^3/uL Mean Platelet Volume 11.9 9.0-12.2 fL Immature Granulocyte % (Auto) 0 % Neutrophils (%) (Auto) 74 42-75 % Lymphocytes (%) (Auto) 19 12-44 % Monocytes (%) (Auto) 5 0-12 % Eosinophils (%) (Auto) 0 0-10 % Basophils (%) (Auto) 0 0-10 % Neutrophils # (Auto) 8.2 H 1.8-7.8 10^3/uL Lymphocytes # (Auto) 2.2 1.0-4.0 10^3/uL Monocytes # (Auto) 0.6 0.0-1.0 10^3/uL Eosinophils # (Auto) 0.0 0.0-0.3 10^3/uL Basophils # (Auto) 0.0 0.0-0.1 10^3/uL Immature Granulocyte # (Auto) 0.0 0.0-0.1 10^3/uL Sodium Level 138 135-145 MMOL/L Potassium Level 3.6 3.6-5.0 MMOL/L Chloride Level 105 98-107 MMOL/L Carbon Dioxide Level 19 L 21-32 MMOL/L Anion Gap 14 5-14 MMOL/L Blood Urea Nitrogen 6 L 7-18 MG/DL Creatinine 0.47 L 0.60-1.30 MG/DL Estimat Glomerular Filtration Rate 130 BUN/Creatinine Ratio 13 Glucose Level 73 70-105 MG/DL Calcium Level 8.5 8.5-10.1 MG/DL Corrected Calcium 8.5 8.5-10.1 MG/DL Magnesium Level 1.8 1.6-2.4 MG/DL Total Bilirubin 0.2 0.1-1.0 MG/DL Aspartate Amino Transf (AST/SGOT) 13 5-34 U/L Alanine Aminotransferase (ALT/SGPT) 11 0-55 U/L Alkaline Phosphatase 71 40-136 U/L Total Protein 6.8 6.4-8.2 GM/DL Albumin 4.0 3.2-4.5 GM/DL My Orders Orders - BERENICE SPARKS MD Cbc With Automated Diff (08/25/21 13:37) Comprehensive Metabolic Panel (08/25/21 13:37) Magnesium (08/25/21 13:37) Ua Culture If Indicated (08/25/21 13:37) Ed Iv/Invasive Line Start (08/25/21 13:37) Ns Iv 1000 Ml (Sodium Chloride 0.9%) (08/25/21 13:45) Covid 19 Inhouse Test (08/25/21 13:39) Drug Screen Stat (Urine) (08/25/21 13:48) Vital Signs/I&O 08/25/21 13:34 Temp 36.5 Pulse 74 Resp 16 B/P (MAP) 126/63 (84) Pulse Ox 100 O2 Delivery Room Air Capillary Refill : Progress Note : Progress Note LIGHT HEADEDNESS: - CBC/ CMP: unremarkable - UA and UDS normal - NS IVF bolus STAT - COVID test negative - ultrasound not here and pt does not want to go to [place] to get u/s since she has an OB appt tomorrow. - heart rate is 130-140's - Snacks given to pt and monitored. - Follow up with PCP/ [facility] in [place] where she has established care. - Advised adequate hydration, do not drive while feeling dizzy. - Pt feels better but still mildly light headed. Pt called [facility] while in the ER and has an appointment for 11:30 AM tomorrow morning. Advised to eat a meal as soon as she gets home. -The patient was seen in the ED, and treated appropriately to presentation at a specific point in time. Patient is informed that there is a possibility that disease and illness can evolve and change in acuity rapidly or slowly after patient is discharged from the ER. Precautionary advice given to the patient for immediate return to ER if symptoms worsen or do not resolve, and to seek emergency care sooner rather than later. Pt also advised on the importance of PCP follow up and compliance with management and follow up plan with PCP and/or specialist, as this is part of the management plan. Pt verbally expressed understanding. Departure Impression Primary Impression: Light headed Disposition: 01 HOME, SELF-CARE Condition: Improved Departure-Patient Inst. Referrals: NO,LOCAL PHYSICIAN (PCP/Family) Primary Care Physician Patient Instructions: Dizziness, Nonvertigo, (DC), Dizziness, Adult ED Add. Discharge Instructions: - Follow up with PCP/ OB-FIL[facility] INS[facility] in [place] where she has established care. - Advised adequate hydration, do not drive while feeling dizzy. - Pt feels better but still mildly light headed. Pt called OB-FILM INSPECT[facility] while in the ER and has an appointment for 11:30 AM tomorrow morning. Advised to eat a meal as soon as she gets home. All discharge instructions reviewed with patient and/or family. Voiced understanding. BERENICE SPARKS MD Aug 25, 2021 13:29
[2021-08-25 13:34] VITALS: BP 126/63
[2021-08-25 13:44] LABS: BILIRUBIN,URINE NEGATIVE (NEGATIVE); CLARITY,URINE CLEAR; COLOR,URINE YELLOW; GLUCOSE, URINE (UA) NEGATIVE (NEGATIVE); KETONES,URINE NEGATIVE (NEGATIVE); LEUKOCYTE ESTERASE ,URINE NEGATIVE (NEGATIVE); NITRITE,URINE NEGATIVE (NEGATIVE); PROTEIN,URINE NEGATIVE (NEGATIVE)
[2021-08-25] MEDS ORDERED: NS IV 1000 ML 1,000 ML IV SCH (13:45)
[2021-08-25 13:48] LABS: BACTERIA,URINE NEGATIVE /HPF
[2021-08-25 13:49] LABS: SQUAMOUS EPITHELIAL CELL,UR RARE /HPF
[2021-08-25 14:06] LABS: AMPHETAMINE SCREEN, URINE NEGATIVE (NEGATIVE); BARBITURATE SCREEN URINE NEGATIVE (NEGATIVE); BENZODIAZEPINES SCREEN URINE NEGATIVE (NEGATIVE); CANNABINOID SCREEN, URINE NEGATIVE (NEGATIVE); COCAINE SCREEN URINE NEGATIVE (NEGATIVE); METHADONE STAT NEGATIVE (NEGATIVE); OPIATE SCREEN URINE NEGATIVE (NEGATIVE); OXYCODONE STAT NEGATIVE (NEGATIVE); PROPOXYPHENE STAT NEGATIVE (NEGATIVE); TRICYCLIC ANTIDEPRESSANTS SCRE NEGATIVE (NEGATIVE)
[2021-08-25 14:10] LABS: BASOPHILS % (AUTO) 0 % (0-10); EOSINOPHILS % (AUTO) 0 % (0-10); HEMATOCRIT 35 % (35-52); HEMOGLOBIN 12.1 g/dL (11.5-16.0); LYMPHOCYTES # (AUTO) 2.2 10^3/uL (1.0-4.0); LYMPHOCYTES % (AUTO) 19 % (12-44); MEAN CORPUSCULAR HEMOGLOBIN 32 pg (25-34); MEAN CORPUSCULAR HGB CONC 35 g/dL (32-36); MEAN CORPUSCULAR VOLUME 91 fL (80-99); MEAN PLATELET VOLUME 11.9 fL (9.0-12.2); MONOCYTES # (AUTO) 0.6 10^3/uL (0.0-1.0); MONOCYTES % (AUTO) 5 % (0-12); NEUTROPHILS # (AUTO) 8.2 10^3/uL (1.8-7.8); NEUTROPHILS % (AUTO) 74 % (42-75); PLATELET COUNT 168 10^3/uL (130-400); WHITE BLOOD COUNT 11.1 10^3/uL (4.3-11.0)
[2021-08-25 14:29] LABS: BILIRUBIN,TOTAL 0.2 MG/DL (0.1-1.0); CALCIUM 8.5 MG/DL (8.5-10.1); CREATININE SERUM 0.47 MG/DL (0.60-1.30); MAGNESIUM 1.8 MG/DL (1.6-2.4); POTASSIUM 3.6 MMOL/L (3.6-5.0)
[2021-08-25 14:30] LABS: TOTAL PROTEIN 6.8 GM/DL (6.4-8.2)
== END 2021-08-25 15:45 | disposition home or self-care (01) ==
LOC: EDUNIT# 13:14 → ER FS 13:16
DX: O26.892 Other specified pregnancy related conditions, second trimester (principal); R42 Dizziness and giddiness; Z20.822 Contact with and (suspected) exposure to COVID-19; Z28.310 Unvaccinated for COVID-19; Z3A.24 24 weeks gestation of pregnancy
CPT/HCPCS: 36415; 80053; 80306; 81000; 83735; 85025; 87636

== ENCOUNTER → 2021-12-21 | Outpatient (CLI) | payer BC, MEDICAID | LOC: LABNPT 14:57 | PROVIDERS: ATTEND Registered Nurse Emergency | DX: N39.0 Urinary tract infection, site not specified (principal) | CPT/HCPCS: 87088 ==

== ENCOUNTER 2022-03-18 11:01 | Day surgery (SDC) | payer BC, MEDICAID ==
[2022-03-18] VITALS (12 sets, daily range): BP systolic 87–109; BP diastolic 49–70
[2022-03-18] MEDS ORDERED: LIDOCAINE/EPI 1%-1:100,000 (XYLOCAINE) 30ML ONE (11:07)
--- NOTE | 2022-03-18 11:24 | Progress Note-Pre Operative ---
Pre-Operative Progress Note Date of Available H&P: Mar 18, 2022 Date H&P Reviewed: Mar 18, 2022 Time H&P Reviewed: 11:30 History & Physical: H&P Reviewed, Patient Examed, No changes noted Changes from last HP none Pre-Operative Diagnosis: Right Peritonsillar Abscess ELISEO BHATT MD Mar 18, 2022 11:24
--- NOTE | 2022-03-18 11:25 | Progress Note-Post Operative ---
Post-Operative Progess Note Surgeon (s)/Drier Operator Helper (s) Surgeon ELISEO BHATT MD Drier Operator Helper n/a Pre-Operative Diagnosis Right Peritonsillar Abscess Post-Operative Diagnosis same Post-Op Procedure Note Date of Procedure: Mar 18, 2022 Name of Procedure Performed: Incision/Drainage of Right Peritonsillar Abscess Description & Findings Description and Findings: n/a Anesthesia Type get Estimated Blood Loss minimal Packing none. Specimen(s) collected/removed full throat culture-surface ELISEO BHATT MD Mar 18, 2022 11:25
[2022-03-18] MEDS ORDERED: fentaNYL INJ 100 MCG/2 ML AMP ONE ×2 (11:28→12:22)
[2022-03-18] MEDS ORDERED: proPOfol 200 MG/20 ML (DIPRIVAN) VIAL IV ONE (11:28)
[2022-03-18] MEDS ORDERED: LIDOCAINE PF 2% 5 ML (XYLOCAINE) VIAL ONE (11:28)
[2022-03-18] MEDS ORDERED: ONDANSETRON 4 MG/2 ML (SDV) Z0FRAN ONE (11:29)
[2022-03-18] MEDS ORDERED: ROCURONIUM 50 MG/5 ML (ZEMURON) VIAL IV ONE (11:29)
[2022-03-18 11:30] LABS: BASOPHILS # (AUTO) 0.1 10^3/uL (0.0-0.1); BASOPHILS % (AUTO) 0 % (0-10); EOSINOPHILS % (AUTO) 0 % (0-10); HEMATOCRIT 36 % (35-52); HEMOGLOBIN 11.9 g/dL (11.5-16.0); LYMPHOCYTES # (AUTO) 2.2 10^3/uL (1.0-4.0); LYMPHOCYTES % (AUTO) 11 % (12-44); MEAN CORPUSCULAR HEMOGLOBIN 29 pg (25-34); MEAN CORPUSCULAR HGB CONC 33 g/dL (32-36); MEAN CORPUSCULAR VOLUME 87 fL (80-99); MEAN PLATELET VOLUME 11.5 fL (9.0-12.2); MONOCYTES % (AUTO) 10 % (0-12); NEUTROPHILS # (AUTO) 15.8 10^3/uL (1.8-7.8); NEUTROPHILS % (AUTO) 78 % (42-75); PLATELET COUNT 282 10^3/uL (130-400); WHITE BLOOD COUNT 20.3 10^3/uL (4.3-11.0)
[2022-03-18] MEDS ORDERED: NS IV 1000 ML 1,000 ML IV SCH (11:30)
[2022-03-18] MEDS: LACTATED RINGERS 1,000 ML IV PRN ×2 (11:30→12:26)
[2022-03-18] MEDS ORDERED: APAP 325 MG/10.15 ML LIQ (TYLENOL) UDC PO PRN (11:30)
[2022-03-18 11:54] LABS: BAND NEUTROPHILS 1 %; BASOPHILS % (MANUAL) 0 %; ELLIPT/OVALOCYTES SLIGHT; EOSINOPHILS % (MANUAL) 0 %; LYMPHOCYTES % (MANUAL) 11 %; MONOCYTES % (MANUAL) 5 %; NEUTROPHILS % (MANUAL) 83 %
[2022-03-18] MEDS ORDERED: AMPICILL/SULB 1.5 GM VIAL (UNASYN) ONE (11:56)
[2022-03-18] MEDS ORDERED: NS (IVPB) 50 ML ONE (11:56)
[2022-03-18] MEDS ORDERED: LIDOCAINE 2% VISCOUS 15 ML UDC PO SCH (12:00)
[2022-03-18] MEDS ORDERED: GLYCOPYRROLATE 0.2 MG/ML (ROBINUL) 2 ML VIAL ONE (12:02)
[2022-03-18] MEDS ORDERED: NEOSTIGMINE (BLOXIVERZ ) 1 MG/1ML 10 ML VIAL ONE (12:02)
[2022-03-18] MEDS ORDERED: SEVOFLURANE (ULTANE) 15 ML INHAL SOLN ONE (12:03)
[2022-03-18] MEDS ORDERED: MEPERIDINE (DEMEROL) INJ 50 MG/ML ONE (12:10)
--- NOTE | 2022-03-18 12:19 | Anesthesia-General Post-Op ---
General Patient Condition Mental Status/LOC: Same as Preop Cardiovascular: Satisfactory Nausea/Vomiting: Absent Respiratory: Satisfactory Pain: Controlled Complications: Absent Post Op Complications Complications None Follow Up Care/Instructions Patient Instructions None needed. Anesthesia/Patient Condition Patient Condition Patient is doing well, no complaints, stable vital signs, no apparent adverse anesthesia problems. No complications reported per nursing. RAIN MARTINS CRNA Mar 18, 2022 12:19
[2022-03-18] MEDS ORDERED: AMPICILLIN 1,000 MG VIAL (IV USE) IV ONE (12:26)
[2022-03-18] MEDS ORDERED: fentaNYL INJ 100 MCG/2 ML AMP IVP ONE (12:30)
[2022-03-18] MEDS ORDERED: PROMETHAZINE INJ 25 MG/ML (PHENERGAN) AMP IVP ONE (12:30)
[2022-03-18] MEDS ORDERED: LIDOCAINE/EPI 1%-1:100,000 (XYLOCAINE) 30ML INJ ONE (12:46)
== END 2022-03-18 13:55 | disposition home or self-care (01) ==
LOC: SDC 11:01
PROVIDERS: ATTEND Otolaryngology Otolaryngology/Facial Plastic Surgery
DX: J36 Peritonsillar abscess (principal); F17.210 Nicotine dependence, cigarettes, uncomplicated; Z28.310 Unvaccinated for COVID-19
CPT/HCPCS: 36415; 84703; 85007; 85027; 87070; 87081

== ENCOUNTER 2022-03-20 07:48 | Emergency (ER) | payer BC, MEDICAID ==
[~2022-03-20] VITALS: Ht 160 cm; Wt 63.0 kg
--- NOTE | 2022-03-20 08:14 | ED EENT ---
History of Present Illness General Chief Complaint: Oral/Throat Problems Stated Complaint: POSS ABSCESS ON TONGUE Nursing Triage Note: PT AMB TO RM 6, PT CO OF ABCESS TYPE LESIONS ON TOUNGE SIDES BILATERALLY, PT RECENTLY HAD TONSIL ABCESS INCISED BY DR TODD Source: patient Exam Limitations: no limitations History of Present Illness Date Seen by Provider: Mar 20, 2022 Time Seen by Provider: 07:55 Initial Comments Patient is a 31-year-old female who presents to the emergency department today with a chief complaint of pain and swelling to her tongue. Patient was seen in the last [address] Todd, ENT for right peritonsillar abscess. She had incision and drainage, subsequent to that the sides of her tongue have been very painful and swollen. She is concerned that the swelling increased overnight. She says the pain in her throat is better. She still has a little difficulty swallowing. Taking ibuprofen and Tylenol and using oral rinses of lidocaine without much relief of symptoms. No current fevers or chills. No shortness of breath, nausea or vomiting. Patient is currently breast-feeding a 3-month-old. Concerned about milk production due to dehydration. All other review of systems reviewed and negative except as stated. Timing/Duration: gradual Severity: severe Location: mouth (tongue) Associated Symptoms: poor fluid intake, sore throat Allergies and Home Medications Allergies Coded Allergies: cefazolin (Verified Allergy, Severe, Anaphylaxis, 03/15/19) Patient Home Medication List Home Medication List Reviewed: Yes Acetaminophen (Acetaminophen) 500 Mg Tablet, 1,000 MG PO Q6HR Prescribed by: EJNIFFER MARTINEZ on 03/19/19655 Docusate Sodium (Docusate Sodium) 100 Mg Capsule, 100 MG PO BID Prescribed by: JENIFFER MARTINEZ on 03/19/19 06 Ibuprofen (Ibuprofen) 800 Mg Tablet, 800 MG PO Q8H Prescribed by: JENIFFER E RAULS on 03/19/19 06 Oxycodone Hcl (Oxycodone IR) 5 Mg Tab, 5 MG PO Q4HR PRN for To achieve TAG Prescribed by: JENIFFER MARTINEZ on 03/19/19655 Vit No.124/Iron/FA ( Vitamin Tablet) 1 Each Tablet, 1 EACH PO DAILY, (Reported) Entered as Reported by: ANDREA JAIN on 10/25/18 3845 Review of Systems Review of Systems Constitutional: see HPI Eyes: No Symptoms Reported Ears: No Symptoms Reported Nose: no symptoms reported Mouth: pain, swelling (tongue) Throat: pain (mild), painful swallowing, difficulty with fluids Respiratory: no symptoms reported Cardiovascular: no symptoms reported Gastrointestinal: no symptoms reported : No Musculoskeletal: no symptoms reported Skin: no symptoms reported Neurological: Anxiety Past Kmxyhhb-Mhpvuu-Ssmwkn Hx Patient Social History Tobacco Use?: No Substance use?: No Alcohol Use?: No Pt feels they are or have been: No Immunizations Up To Date Tetanus Booster (TDap): Unknown Influenza Vaccine Up-to-Date: No; Not Current First/Initial COVID19 Vaccinat: Not Currently Vaccinated Second COVID19 Vaccination Reuben: Not Currently Vaccinated Third COVID19 Vaccination Date: Not Currently Vaccinated Seasonal Allergies Seasonal Allergies: Yes Past Medical History Surgery/Hospitalization HX: C-Sections; GB; Pyloric Stenosis, RECENT TONSILAR ABCESS Surgeries: Yes (RIGHT KNEE, PYLORIC STENOSIS REPAIR INFANT, ) Section, Gallbladder, Orthopedic Respiratory: No Currently Using CPAP: No Currently Using BIPAP: No Cardiac: No Neurological: No Reproductive Disorders: Yes (history of labor) Female Reproductive Disorders: Denies Sexually Transmitted Disease: No HIV/AIDS: No Genitourinary: No Gastrointestinal: Yes (DURING ) Gastroesophageal Reflux, Chronic Constipation Musculoskeletal: Yes Chronic Back Pain Endocrine: No HEENT: Yes (GLASSES) Loss of Vision: Denies Hearing Impairment: Deaf Cancer: No Psychosocial: No Integumentary: No Blood Disorders: No Adverse Reaction/Blood Tranf: No (N/A) Physical Exam Vital Signs Vital Signs - First Documented 03/20/22 07:55 Temp 35.4 Pulse 80 Resp 16 B/P (MAP) 131/80 (97) Pulse Ox 99 Height, Weight, BMI Height: 5'2.00" Weight: 142lbs. 0.0oz. 64.268256yr; 24.00 BMI Method:Stated General Appearance: WD/WN, mild distress Eyes: bilateral eye normal inspection, bilateral eye PERRL, bilateral eye EOMI Ears: bilateral ear auricle normal Nose: normal inspection Mouth/Throat: No excessive drooling, No mandibular swelling, No pharynx tenderness; tongue swollen, other (post op changes to right tonsillar pillar consistent with recent incision and drainage of right peritonsillar abscess; patient has swelling bilateral sides of tongue with exquisite tenderness to palpation; no fluctuance to tongue - appears reactive as if it has been bitten on both sides; no floor of the mouth swelling. no anterior cervical LAD; posterior pharynx looks good, no uvular edema) Neck: full range of motion, supple Cardiovascular: regular rate, rhythm Respiratory: no respiratory distress, no accessory muscle use Neurologic/Psychiatric: alert, normal mood/affect, oriented x 3 Skin: normal color, warm/dry Progress/Results/Core Measures Results/Orders Vital Signs/I&O 03/20/22 07:55 Temp 35.4 Pulse 80 Resp 16 B/P (MAP) 131/80 (97) Pulse Ox 99 Blood Pressure Mean: 97 Departure Impression Primary Impression: Glossitis Disposition: 01 HOME, SELF-CARE Condition: Stable Departure-Patient Inst. Decision time for Depature: 08:24 Referrals: ELISEO TODD MD, KATRINA M MD (PCP/Family) Primary Care Physician Patient Instructions: Diet Add. Discharge Instructions: Avoid any warm or hot foods/drinks to decrease swelling of the tongue. Continue the lidocaine by mouth as directed. Use the Percocet every 6 hours as needed. Take with an additional tylenol. Drink lots of water. Fenugreek (found at [employer]) may help with production. As well a a beer, oatmeal, Mother's Milk Tea. The more you stimulate the breast (baby is best) the more milk you will produce. Follow up with Dr Todd this week. Return to the Emergency Department for any new, concerning or emergent complaints. Scripts Oxycodone HCl/Acetaminophen (Percocet 5-325 mg Tablet) 1 Each Tablet 1 TAB PO Q6H for PAIN-MODERATE MDD 6 TABS, #10 TAB Prov: ROBERTO AHN MD 03/20/22 Images Mouth/Nose 1 - Swelling 2 - Swelling Copy Copies To 1: ELISEO TODD MD, KATHRYN M MD Mar 20, 2022 08:14
[2022-03-20] MEDS ORDERED: ACETAMINOPHEN 500 MG TAB (TYLENOL) PO ONE (08:15)
[2022-03-20] MEDS ORDERED: oxyCODONE/APAP 5/325MG (PERCOCET 5) TABLET PO ONE (08:15)
[2022-03-20] MEDS ORDERED: OXYC1TAB87 PO (08:34)
[2022-03-20] MEDS ORDERED: RX-OXYCODONE/APAP 5-325 MG #4 TAB PK PO PRN (08:45)
[2022-03-20 08:46] VITALS: BP 131/80
== END 2022-03-20 08:46 | disposition home or self-care (01) ==
LOC: EDUNIT# 07:48 → ER 07:51
DX: K14.0 Glossitis (principal)
CPT/HCPCS: 99284